=== PATIENT | female | born 1945 | race Caucasian/White ===

== ENCOUNTER → 2023-05-17 10:48 | Outpatient (CLI) | payer MEDICARE, SELFPAY ==
--- NOTE | ~2023-05-17 | MM_ITS ---
EXAMINATION: MM screening ange BI w tavo HISTORY: Screening mammogram TECHNIQUE: Craniocaudal and mediolateral oblique 3-D tomosynthesis images were obtained and synthetic 2-D images were generated. CAD analysis was submitted and interpreted. COMPARISON: No prior mammogram is available for comparison at this institution. BREAST PARENCHYMAL COMPOSITION: There are scattered areas of fibroglandular density. FINDINGS: No suspicious mass, calcification, or architectural distortion are identified in either sunil ast to suggest malignancy. IMPRESSION: 1. No mammographic evidence of malignancy. 2. Recommend routine screening mammography in one year. BI-RADS Category 1: Negative Reviewed, dictated and finalized at location A.
--- NOTE | ~2023-05-17 | DEXA_ITS ---
Bone Density Report Name: LOKI MONTES Age: 77 Sex: Female Ethnicity: White Date of : 1945 Indication: postmenopausal; screening for osteoporosis; asthma or emphysema; hysterectomy; Referring Provider: Duane, Jose Study: Bone densitometry was performed. Exam Date: May 17, 2023 Accession number: [id number] Bone Density: Region BMD T-score Z-score Classification AP Spine (L1-L4) 0.715 -3.0 -0.5 Osteoporosis Femoral Neck (Left) 0.575 -2.5 -0.3 Osteoporosis Total Hip (Left) 0.687 -2.1 -0.2 Osteopenia Femoral Neck (Right) 0.615 -2.1 0.0 Osteopenia Total Hip (Right) 0.670 -2.2 -0.4 Osteopenia Total Hip Mean 0.679 -2.2 -0.3 Osteopenia World Health Organization criteria for BMD impression classify patients as: Normal (T-score at or above -1.0), Osteopenia (T-score between -1.0 and -2.5), or Osteoporosis (T-score at or below -2.5). 10-year Fracture Risk: FRAX not reported because: Some T-score for Spine Total or Hip Total or Femoral Neck at or below -2.5 Clinical Information Provided by Patient: Smokes Has used the following medications: Vitamin D, MTV Has the following medical conditions: Asthma or Emphysema, Hysterectomy Patient maximum height was 63.5 Menopause Age: 29 No regular weight bearing exercise Drinks caffeinated beverages Onset of menses at age 17 Number of children 1 Impression: The patient has osteoporosis, based on the Total Spine T-score. The patient has risk factors, including: smoking. Discussion: INCREASED RISK OF FRACTURE. BONE DENSITY IS UNDESIRABLY LOW AT ONE OR MORE SKELETAL SITES, CONSISTENT WITH POSTMENOPAUSAL OSTEOPOROSIS. This patient's lowest T-score meets the World Health Organization's (WHO) criteria for osteoporosis at one or more sites (T-score -2.5 or below). In untreated patients, the risk of osteoporotic fracture increases approximately two-fold for each 1.0 SD decrease in T-score. Low bone density is not the only risk factor for fracture; also consider factors such as patient's age, frailty or poor health, risk of falling, risk of injury, previous osteoporotic fracture, family history of osteoporosis, cigarette smoking, low body weight, etc. Not everyone with low bone mineral density has osteoporosis; osteomalacia and other metabolic bone disorders should also be considered. Patients who have osteoporosis should be evaluated for specific diseases and conditions (secondary causes) that may cause or contribute to bone loss. The [place] [employer]ocrinologists (AACE) and National Osteoporosis Foundation (NOF) recommend pharmacologic intervention for all postmenopausal women whose T-score is in this range. The patient should follow a healthful lifestyle (good nutrition with adequate calcium and vitamin D, and appropriate weight-bearing exercise).
== END ==
PROVIDERS: PCP Internal Medicine; Visit Provider Internal Medicine
DX: Z12.31 Encounter for screening mammogram for malignant neoplasm of breast (principal); Z78.0 Asymptomatic menopausal state; M81.0 Age-related osteoporosis without current pathological fracture; M85.852 Other specified disorders of bone density and structure, left thigh; M85.851 Other specified disorders of bone density and structure, right thigh
CPT/HCPCS: 77063; 77067; 77080

== ENCOUNTER 2023-11-01 19:09 | Emergency (ER) | payer MEDICARE, SELFPAY ==
--- NOTE | ~2023-11-01 | XR_ITS ---
EXAMINATION: XR chest 2V DATE: 11/01/2023 20:08 INDICATION: Shortness of breath. TECHNIQUE: Frontal and lateral views of the chest were obtained. COMPARISON: None. FINDINGS: The lungs are hyperexpanded. A calcified right lung nodule and calcified right hilar lymph nodes are consistent with old granulomatous disease. There is mild atelectasis in left midlung zone i n the lower lung zones. No pleural effusion or pneumothorax. The heart size is normal. IMPRESSION: 1. Hyperexpanded lungs suspicious for chronic obstructive pulmonary disease. 2. Mild atelectasis bilaterally. Reviewed, dictated and finalized at location E. RTISING SALES REPRESENTATIVE
[2023-11-01 19:11] VITALS: BP 142/77; PULSE 82; RESP 22; TEMP 37.1; O2SAT 94
--- NOTE | 2023-11-01 19:15 | ECG_ITS ---
Measurements Intervals [place] Rate: 74 P: 71 [place]: 134 QRS: 32 QRSD: 81 T: 45 QT: 390 QTc: 434 Interpretive Statements SINUS RHYTHM WITH OCCASIONAL SUPRAVENTRICULAR PREMATURE COMPLEXES NONSPECIFIC ST SEGMENT ABNORMALITY ABNORMAL ECG NO PREVIOUS ECG AVAILABLE FOR COMPARISON Electronically Signed On 11-02-2023 17:28:26 ACCOUNT REPRESENTATIVE by Roger Ambrocio M.D.
[2023-11-01 20:20] LABS: Influenza A QL RT-PCR Positive (Negative); Influenza B QL RT-PCR Negative (Negative); RSV RNA, RT-PCR Negative (Negative); SARS-CoV-2 RNA PCR Negative (Negative)
--- NOTE | 2023-11-01 20:22 | ED.GENADULT ---
HPI - General Adult General Chief complaint: Upper Respiratory Infection Stated complaint: sob Time Seen by Provider: 11/01/23 20:10 Source: patient Mode of arrival: ambulatory Limitations: no limitations History of Present Illness HPI narrative: this is a 77-year-old female who presents to the ED with chief complaint of URI symptoms for the past 3 days. Patient reports that she has had a lot of coughing and shortness of breath, coughing is worse at night. she states she is currently being worked up for possible new diagnosis of COPD. Reports she was recently out of town traveling with family. reports a lot of today tightness in the central chest. Reports low-grade fevers of 99.1. Denies chest pain, abdominal pain, vomiting, diarrhea, neck pain, headache. Related Data Allergies Allergy/AdvReac Type Severity Reaction Status Date / Time Penicillins Allergy Hives Verified 11/01/23 20:25 Review of Systems Review of Systems: All systems as dictated in HPI Exam Narrative: GENERAL: Well-appearing, well-nourished, and in no acute distress. HEAD: Normocephalic, atraumatic. EYES: PERRLA and EOMI. ENT: Mild effusion bilaterally to the TMs. No erythema. Mild posterior oropharynx erythema. Nares clear, no rhinorrhea or epistaxis. Mucous membranes moist. Oropharynx without tonsillar hypertrophy exudate or other lesions. NECK: Supple. No adenopathy or masses. CHEST: No respiratory distress. Clear to auscultation. No wheezes rales or rhonchi . Able speak in full sentences. HEART: Regular rate and rhythm. No murmur heard. Normal peripheral pulses. ABDOMEN: Soft, nontender, nondistended, normal active bowel sounds. MSK: Normal range of motion. No edema. SKIN: Warm, dry, no rash. NEURO: Alert and oriented x4. No focal deficits. PSYCH: Normal mood and affect. Course Vital Signs Vital signs: Vital Signs Temperature 98.7 F 11/01/23 19:11 Pulse Rate 82 11/01/23 19:11 Respiratory Rate 22 H 11/01/23 19:11 Blood Pressure 142/77 H 11/01/23 19:11 Pulse Oximetry 94 11/01/23 19:11 Oxygen Delivery Room Air 11/01/23 19:11 Temperature 98.7 F 11/01/23 19:11 Pulse Rate 82 11/01/23 19:11 Respiratory Rate 22 H 11/01/23 19:11 Blood Pressure 142/77 H 11/01/23 19:11 Pulse Oximetry 94 11/01/23 19:11 Oxygen Delivery Room Air 11/01/23 20:25 Medical Decision Making MDM Narrative Medical decision making narrative: This is a 77-year-old female who presents to the ED with chief complaint of cough, chest tightness shortness of breath. Other urine symptoms such as body aches. Vitals are normal. Afebrile. Saturating 95% on room air. Exam only remarkable for posterior oropharynx erythema. Viral swabs are positive For influenza A. Chest x-ray: 1. Hyperexpanded lungs suspicious for chronic obstructive pulmonary disease. 2. Mild atelectasis bilaterally.. Overall symptoms are consistent with viral syndrome. She does not appear to be risk and should be able to be discharged home. Albuterol prescribed for chest tightness. Supportive measures discussed and strict return precautions were given. Patient is understanding and agreeable with plan for discharge follow-up with PCP. Vital Signs Vital Signs: Vital Signs Temperature 98.7 F 11/01/23 19:11 Pulse Rate 82 11/01/23 19:11 Respiratory Rate 22 H 11/01/23 19:11 Blood Pressure 142/77 H 11/01/23 19:11 Pulse Oximetry 94 11/01/23 19:11 Oxygen Delivery Room Air 11/01/23 19:11 Temperature 98.7 F 11/01/23 19:11 Pulse Rate 82 11/01/23 19:11 Respiratory Rate 22 H 11/01/23 19:11 Blood Pressure 142/77 H 11/01/23 19:11 Pulse Oximetry 94 11/01/23 19:11 Oxygen Delivery Room Air 11/01/23 20:25 Lab Data Labs: Lab Results 11/01/23 Range/Units 19:28 Influenza A (RT-PCR) Positive A (Negative) Influenza B (RT-PCR) Negative (Negative) RSV (RT-PCR) Negative (Negative) MARIANNE
== END 2023-11-01 21:03 | disposition home or self-care (01) ==
LOC: ANHED 20:55
PROVIDERS: Emergency Medicine; Emergency Provider Physician Assistant; PCP Internal Medicine
DX: J10.1 Influenza due to other identified influenza virus with other respiratory manifestations (principal); Z20.822 Contact with and (suspected) exposure to COVID-19; I49.1 Atrial premature depolarization
CPT/HCPCS: 71046; 87637; 93005; 99283

== ENCOUNTER 2025-08-18 15:23 | Emergency (ER) | payer MEDICARE, SELFPAY ==
[2025-08-18] VITALS (16 sets, daily range): BP systolic 126–153; BP diastolic 65–117; PULSE 57–73; RESP 13–27; TEMP 36.7; O2SAT 91–96
--- NOTE | ~2025-08-18 | CT_ITS ---
EXAMINATION: CTA neck, CTA chest DATE: 08/18/2025 20:45 INDICATION: Neck and chest swelling. Subclavian stenosis. TECHNIQUE: 1. Computed tomographic angiography (CTA) of the neck was performed with 100 mL of Omnipaque-350 intravenous contrast. Multiplanar reconstructions and maximum intensity projection 3D-reconstructions of the carotid arteries were created by the technologist on a separate workstation. Automated exposure control and iterative reconstruction technique were employed. The dose-length product was 471.33 (accession [id number]), 506.50 (accession [id number]) mGy-cm. 2. CT of the chest was performed with the identical 100 mL Omnipaque 350 intravenous contrast bolus. Additional 3D reconstructions utilizing coronal maximum intensity projection (MIP) were performed. Automated exposure control and iterative reconstruction technique were employed. The dose-length product was 506.50 mGy-cm. COMPARISON: None FINDINGS: Chest: Mild to moderate emphysema. Mild elevation the left hemidiaphragm. Bibasilar atelectasis. Additional linear discoid atelectasis/scarring in the lingula and right lower lobe. Calcified right lower lobe nodule along with a few small calcified hepatic and splenic calcifications consistent with old granulomatous disease. No pneumonia, pulmonary edema, pleural effusion or pneumothorax. Mild cardiomegaly. Atherosclerotic coronary artery calcification is. No pericardial effusion. No pathologically enlarged thoracic or upper abdominal lymphadenopathy. Cholecystectomy clips at the gallbladder fossa. 2.1 x 1.9 cm simple appearing cystic lesion at the head of the pancreas without evident solid soft tissue component. Thoracic aorta is normal in caliber. 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 There is atherosclerotic calcification along the aortic arch and great vessels arising from the arch. This most notable for a 75% stenosis at the proximal left subclavian artery. No hemodynamically significant stenosis of the aorta or remaining great vessels arising from the arch. 25 degree upper thoracic levoscoliosis with 15 degree compensatory dextroscoliosis in the mid to lower thoracic spine. Mild to moderate thoracic spondylosis. Neck: There is 20% stenosis of the right carotid bulb relative to normal distal artery lumen diameter (NASCET criteria). There is 45% stenosis of the left carotid bulb relative to normal distal artery lumen diameter. Bilateral vertebral arteries are codominant. There is non-hemodynamically significant atherosclerotic calcifications along the bilateral carotid siphons. There is no hemodynamically significant stenosis in the vertebral, basilar and internal carotid arteries. Both A1 and P1 segments are patent. The right P1 segment is diminutive with majority of flow to the right posterior cerebral artery supplied via a larger caliber patent right posterior cerebral artery. There is also a patent diminutive left posterior communicating artery. There is a 2 mm saccular aneurysm arising from the anterior to indicating artery. Cervical soft tissues are unremarkable. Changes of bilateral intraocular lens replacement. There is mucosal thickening the right maxillary sinus. Minimal cervical spondylosis with one-2 mm anterolisthesis C4 on C5. IMPRESSION: 1. 20% stenosis of the right carotid bulb relative to normal distal artery lumen diameter (NASCET criteria). 2. 45% stenosis of the left carotid bulb relative to normal distal artery lumen diameter. 3. 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 4. 2 mm saccular aneurysm arising from the anterior communicating artery. 5. Mild cardiomegaly. 6. 2.1 x 1.9 cm simple appearing cystic lesion at the head of the pancreas without evident solid soft tissue component. The differential diagnosis includes pseudocyst, intraductal papillary mucinous neoplasm (IPMN), mucinous cystic neoplasm (MCN), and the less common serous cystadenoma and neuroendocrine tumor. Correlate for history of pancreatitis and consider 6 month follow-up pre and postcontrast MRI. Reviewed, dictated and finalized at location A. IMPRESSION: 1. 20% stenosis of the right carotid bulb relative to normal distal artery lume n diameter (NASCET criteria). 2. 45% stenosis of the left carotid bulb relative to normal distal artery lumen diameter. 3. 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 4. 2 mm saccular aneurysm arising from the anterior communicating artery. 5. Mild cardiomegaly. 6. 2.1 x 1.9 cm simple appearing cystic lesion at the head of the pancreas with out evident solid soft tissue component. The differential diagnosis includes ps eudocyst, intraductal papillary mucinous neoplasm (IPMN), mucinous cystic neopl asm (MCN), and the less common serous cystadenoma and neuroendocrine tumor. Cor relate for history of pancreatitis and consider 6 month follow-up pre and postc ontrast MRI.
--- NOTE | ~2025-08-18 | CT_ITS ---
EXAMINATION: CT cervical spine wo con COMPARISON: None HISTORY: neck pain with left UE radiculopathy TECHNIQUE: Axial images were obtained through the spine without IV contrast. Coronal, sagittal reconstruction images were obtained from the axial views. CT scan performed using dose optimization techniques including the following automated exposure control; adjustment of mA and/or kV; use of iterative reconstruction technique. Automatic exposure control was used to reduce radiation dose. Permanent radiation dose record is archived to PACS. FINDINGS: Grade 1 anterolisthesis of C3 on C4 and C4 on C5 C5 on C6, no fracture is identified. Moderate loss of disc height C3 4 x 6 and C6-7 with moderate canal and foraminal stenosis, outpatient MRI is suggested. Soft tissues unremarkable. Impression: No acute abnormality. Reviewed, dictated and finalized at location P. Impression: No acute abnormality.
--- OUTSIDE RECORDS SUMMARY | 2025-08-18 14:30 | XMS_ITS | Encounter Summary ---
Author Organization [facility] Healthcare Address [address] [place] [address] Care Team Providers Care Chief Environmental Commitment Officer Name Role Phone Unknown, Notinfile Primary Care Provider Unavail able Reason for Visit * Reason Comments Neck Pain Neck and shoulder pa in started yesterday, starting to go down into back on left side, sharps pain come and go causes her to get SOB Encounter Details Date Type Department Care Team (Late st Contact Info) Description 08/18/2025 2:30 PM CDT Office Visit [facility] at [address] [phone] Veronica Ga, PRECISION PRINTING WORKER [address] [place] [address] [address] [place], [place] [phone] Neck swelling (Primary Dx); Shortness of breath Social History Tobacco Use Types Packs/Day Years Used Date Smoking Tobacco: Never Assessed Comments Unknown Sex and Gender Information Value Date Recorded Sex Assigned at Not on file Legal Sex Female 8:22 PM TOUR ESCORT Gender Identity Not on file Sexual Orientation Not on file documented as of this encounter Last Filed Vital Signs Vital Sign Reading Time Taken Comments Blood Pressure 126/86 08/18/2025 2:27 PM CDT Pulse 59 08/18/2025 2:27 PM CDT Temperature 36.8 C (98.3 F) 08/18/2025 2:27 PM CDT Respiratory Rate 20 08/18/2025 2:27 PM CDT Oxygen Saturation 96% 08/18/2025 2:27 PM CDT Inhaled Oxygen Concentration - - Weight 66.2 kg (146 lb) 08/18/2025 2:27 PM CDT Height - - Body Mass Index - - documented in this encounter Plan of Treatment Not on file documented as of this encounter Visit Diagnoses Diagnosis Neck swelling- Primary Swelling, mass, or lump in head and neck Shortness of breath documented in this encounter Historical Medications * This list may reflect changes made after this encounter. Anoro Ellipta 62.5-25 mcg/actuation blister with device INHALE 1 PUFF INTO THE LUNGS DAILY. RINSE AND SPIT AFTER USE 07/24/2025 budesonide EC (ENTOCORT EC) 3 mg 24 hr capsule Take 1 capsule (3 mg total) by mouth gold plater before breakfast atorvastatin (LIPITOR) 40 mg tablet Take 1 tablet (40 mg total) by mouth daily 06/12/2025 meclizine (ANTIVERT) 25 mg tablet Take 0.5 tablets (12.5 mg total) by mouth 3 (three) times a day as needed 06/19/2025 propranolol LA (INDERAL LA) 60 mg 24 hr capsule Take 1 capsule (60 mg total) by mouth daily 06/03/2025 amLODIPine (NORVASC) 5 mg tablet Take 1 tablet (5 mg total) by mouth daily 10/01/2024 lisinopriL (PRINIVIL,ZESTRI L) 10 mg tablet Take 1 tablet (10 mg total) by mouth daily 04/09/2025 added in this encounter Care Teams Chief Environmental Commitment Officer Relationship Specialty Start Date End Date Unknown, Notinfile PCP - General 08/18/25 documented as of this encounter
--- OUTSIDE RECORDS SUMMARY | 2025-08-18 14:30 | XMS_ITS | Encounter Summary ---
Author Organization [facility] Healthcare Address [address] [place] [address] Care Team Providers Care Freight Conductor Name Role Phone Unknown, Notinfile Primary Care Provider Unavail able Reason for Visit * Reason Comments Neck Pain Neck and shoulder pa in started yesterday, starting to go down into back on left side, sharps pain come and go causes her to get SOB Encounter Details Date Type Department Care Team (Late st Contact Info) Description 08/18/2025 2:30 PM CDT Office Visit [facility] at [address] [phone] Veronica Ga, LIQUIFIED NATURAL GAS SPECIALIST [address] [place] [address] [address] [place], [place] [phone] Neck swelling (Primary Dx); Shortness of breath Social History Tobacco Use Types Packs/Day Years Used Date Smoking Tobacco: Never Assessed Comments Unknown Sex and Gender Information Value Date Recorded Sex Assigned at Not on file Legal Sex Female 8:22 PM COTTON FACTOR Gender Identity Not on file Sexual Orientation [...] 1 capsule (3 mg total) by mouth early childhood teacher before breakfast atorvastatin (LIPITOR) 40 mg tablet [...] 04/09/2025 added in this encounter Care Teams Freight Conductor Relationship Specialty Start Date End Date Unknown, Notinfile PCP - General 08/18/25 documented as of this encounter
--- NOTE | 2025-08-18 15:33 | ED_ITS ---
HPI - General Adult General Chief complaint: Unspecified <Doug Jim APRN - Last Filed: 08/18/25 15:37> Stated complaint: potential vascular blockage <Doug Jim APRN - Last Filed: 08/18/25 15:37> Time Seen by Provider: 08/18/25 19:21 <Doug Jim APRN - Last Filed: 08/18/25 15:37> Focused HPI: 79-year-old female presents to the ER via EMS for evaluation of neck pain. States that she been experiencing neck pain radiates into her left arm since yesterday. Pain is worse with movement. 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 Under the care of vascular surgery through [facility]. Denies numbness and tingling in the left arm. Denies upper extremity weakness. Denies temperature changes in left upper extremity. GENERAL: Well-appearing, well-nourished, and in no acute distress. HEAD: Normocephalic, atraumatic. CHEST: Clear to auscultation. No respiratory distress. HEART: Regular rate and rhythm. NEURO: Alert and oriented x3. Patient screened in triage and initial orders placed. Additional care and disposition to be based upon diagnostic testing and treatment. <Doug Jim APRN - Last Filed: 08/18/25 15:37> History of Present Illness HPI narrative: Patient 79-year-old female who presents emergency department chief complaint of left-sided neck pain. Patient reports the pain radiates down her left arm reports he has history of subclavian artery stenosis and is followed by vascular surgery and [facility] the patient states no numbness no weakness in the arm the patient reports that she feels as though her neck may be swollen on the left side <Adama Kaminski MD - Last Filed: 08/18/25 22:35> Related Data Allergies/adverse reactions: Allergies Allergy/AdvReac Type Severity Reaction Status Date / Time Penicillins Allergy Hives Verified 11/01/23 20:25 <Doug Jim APRN - Last Filed: 08/18/25 15:37> Review of Systems 2 Review of Systems: A 10 system review of systems was completed on the patient and is negative except for what is stated in the HPI. Nursing and ancillary documentation was reviewed. <Adama Kaminski MD - Last Filed: 08/18/25 22:35> Exam 2 Narrative: GENERAL: Well-appearing, well-nourished, and in no acute distress. HEAD: Normocephalic, atraumatic. EYES: PERRLA and EOMI. ENT: Nares clear, no rhinorrhea or epistaxis. Mucous membranes moist. NECK: Supple. CHEST: Clear to auscultation. No respiratory distress. HEART: Regular rate and rhythm. No murmur heard. Normal peripheral pulses. ABDOMEN: Soft, nontender, nondistended, normal active bowel sounds. EXTREMITIES: Normal range of motion. No edema. SKIN: Warm, dry, no rash. NEURO: No focal deficits. Alert and oriented x3. PSYCH: Normal mood and affect. <Adama aKminski MD - Last Filed: 08/18/25 22:35> Course Vital Signs Vital signs: Vital Signs Temperature 36.7 C 08/18/25 15:26 Pulse Rate 71 08/18/25 15:26 Respiratory Rate 18 08/18/25 15:26 Blood Pressure 138/117 H 08/18/25 15:26 Pulse Oximetry 96 08/18/25 15:26 Oxygen Delivery Room Air 08/18/25 15:26 Temperature 36.7 C 08/18/25 15:26 Pulse Rate 60 08/18/25 21:46 Respiratory Rate 19 08/18/25 21:46 Blood Pressure 131/65 08/18/25 21:46 Pulse Oximetry 5 L 08/18/25 21:46 Oxygen Delivery Room Air 08/18/25 15:26 <Doug Jim, [employer] - Last Filed: 08/18/25 15:37> Vital Signs Temperature 36.7 C 08/18/25 15:26 Pulse Rate 71 08/18/25 15:26 Respiratory Rate 18 08/18/25 15:26 Blood Pressure 138/117 H 08/18/25 15:26 Pulse Oximetry 96 08/18/25 15:26 Oxygen Delivery Room Air 08/18/25 15:26 Temperature 36.7 C 08/18/25 15:26 Pulse Rate 60 08/18/25 21:46 Respiratory Rate 19 08/18/25 21:46 Blood Pressure 131/65 08/18/25 21:46 Pulse Oximetry 5 L 08/18/25 21:46 Oxygen Delivery Room Air 08/18/25 15:26 <Adama Kaminski MD - Last Filed: 08/18/25 22:35> Medical Decision Making MDM Narrative Medical decision making narrative: Differential diagnosis includes arterial lesion, abscess, Laboratory studies were obtained on the patient showed normal CBC normal CMP CT scan of the neck and chest showed FINDINGS: Chest: Mild to moderate emphysema. Mild elevation the left hemidiaphragm. Bibasilar atelectasis. Additional linear discoid atelectasis/scarring in the lingula and right lower lobe. Calcified right lower lobe nodule along with a few small calcified hepatic and splenic calcifications consistent with old granulomatous disease. No pneumonia, pulmonary edema, pleural effusion or pneumothorax. Mild cardiomegaly. Atherosclerotic coronary artery calcification is. No pericardial effusion. No pathologically enlarged thoracic or upper abdominal lymphadenopathy. Cholecystectomy clips at the gallbladder fossa. 2.1 x 1.9 cm simple appearing cystic lesion at the head of the pancreas without evident solid soft tissue component. Thoracic aorta is normal in caliber. 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 There is atherosclerotic calcification along the aortic arch and great vessels arising from the arch. This most notable for a 75% stenosis at the proximal left subclavian artery. No hemodynamically significant stenosis of the aorta or remaining great vessels arising from the arch. 25 degree upper thoracic levoscoliosis with 15 degree compensatory dextroscoliosis in the mid to lower thoracic spine. Mild to moderate thoracic spondylosis. Neck: There is 20% stenosis of the right carotid bulb relative to normal distal artery lumen diameter (NASCET criteria). There is 45% stenosis of the left carotid bulb relative to normal distal artery lumen diameter. Bilateral vertebral arteries are codominant. There is non-hemodynamically significant atherosclerotic calcifications along the bilateral carotid siphons. There is no hemodynamically significant stenosis in the vertebral, basilar and internal carotid arteries. Both A1 and P1 segments are patent. The right P1 segment is diminutive with majority of flow to the right posterior cerebral artery supplied via a larger caliber patent right posterior cerebral artery. There is also a patent diminutive left posterior communicating artery. There is a 2 mm saccular aneurysm arising from the anterior to indicating artery. Cervical soft tissues are unremarkable. Changes of bilateral intraocular lens replacement. There is mucosal thickening the right maxillary sinus. Minimal cervical spondylosis with one-2 mm anterolisthesis C4 on C5. IMPRESSION: 1. 20% stenosis of the right carotid bulb relative to normal distal artery lumen diameter (NASCET criteria). 2. 45% stenosis of the left carotid bulb relative to normal distal artery lumen diameter. 3. 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 4. 2 mm saccular aneurysm arising from the anterior communicating artery. 5. Mild cardiomegaly. 6. 2.1 x 1.9 cm simple appearing cystic lesion at the head of the pancreas without evident solid soft tissue component. The differential diagnosis includes pseudocyst, intraductal papillary mucinous neoplasm (IPMN), mucinous cystic neoplasm (MCN), and the less common serous cystadenoma and neuroendocrine tumor. Correlate for history of pancreatitis and consider 6 month follow-up pre and postcontrast MRI. The patient is followed at [facility] vascular given his no acute findings the patient will be discharged home to follow-up with her vascular surgeon <Adama Kaminski MD - Last Filed: 08/18/25 22:35> Vital Signs Vital Signs: Vital Signs Temperature 36.7 C 08/18/25 15:26 Pulse Rate 71 08/18/25 15:26 Respiratory Rate 18 08/18/25 15:26 Blood Pressure 138/117 H 08/18/25 15:26 Pulse Oximetry 96 08/18/25 15:26 Oxygen Delivery Room Air 08/18/25 15:26 Temperature 36.7 C 08/18/25 15:26 Pulse Rate 60 08/18/25 21:46 Respiratory Rate 19 08/18/25 21:46 Blood Pressure 131/65 08/18/25 21:46 Pulse Oximetry 5 L 08/18/25 21:46 Oxygen Delivery Room Air 08/18/25 15:26 <Doug Jim APRN - Last Filed: 08/18/25 15:37> Vital Signs Temperature 36.7 C 08/18/25 15:26 Pulse Rate 71 08/18/25 15:26 Respiratory Rate 18 08/18/25 15:26 Blood Pressure 138/117 H 08/18/25 15:26 Pulse Oximetry 96 08/18/25 15:26 Oxygen Delivery Room Air 08/18/25 15:26 Temperature 36.7 C 08/18/25 15:26 Pulse Rate 60 08/18/25 21:46 Respiratory Rate 19 08/18/25 21:46 Blood Pressure 131/65 08/18/25 21:46 Pulse Oximetry 5 L 08/18/25 21:46 Oxygen Delivery Room Air 08/18/25 15:26 <Adama Kaminski MD - Last Filed: 08/18/25 22:35> Lab Data Result diagrams: 08/18/25 19:55 08/18/25 19:55 <Doug Jim APRN - Last Filed: 08/18/25 15:37> Labs: Lab Results 08/18/25 Range/Units 19:55 WBC 7.7 (4.5-10.0) K/mm3 RBC 3.70 L (4.2-5.4) M/mm3 Hgb 12.0 (12.0-15.0) g/dL Hct 37.3 (37.0-47.0) % MCV 100.8 H (80-100) fl MCH 32.4 (26-34) pg MCHC 32.2 (32-36) g/dl RDW 13.5 (11.5-14.5) % Plt Count 248 (150-375) k/mm3 MPV 9.3 (7.4-10.4) fl Immature Gran % (Auto) 0.3 (0-0.5) % Neut % (Auto) 65.2 (45.5-73.1) % Lymph % (Auto) 23.9 (18.3-44.2) % [place] % (Auto) 7.8 (2.6-8.5) % Eos % (Auto) 2.3 (0-4.4) % Baso % (Auto) 0.5 (0.2-1.2) % Lymph # (Auto) 1.85 (0.9-3.2) K/mm3 [place] # (Auto) 0.6 (0.1-0.6) K/mm3 Eos # (Auto) 0.2 (0-0.3) K/mm3 Baso # (Auto) 0.0 (0.0-0.1) K/mm3 Abs Immat Gran (auto) 0.02 (0.00-0.031) K/mm3 Absolute Neuts (auto) 5.0 (1.3-6.7) K/mm3 Absolute Nucleated RBC 0.000 (0.0-0.012) K/mm3 Nucleated RBC % 0.0 (0.0-0.2) % PT 12.1 (11.1-14.7) Seconds INR 0.9 APTT 27.3 (22.3-36.8) Seconds Sodium 138 (137-145) mmol/L Potassium 3.7 (3.4-5.0) mmol/L Chloride 106 (98-107) mmol/L Carbon Dioxide 24 (22-30) mmol/L Anion Gap 8 (4-12) mmol/L BUN 17 (7-17) mg/dL Creatinine 0.93 (0.7-1.0) mg/dL Estim Creat Clear Calc 36 ml/min Estimated GFR 58 L (59 - ) Glucose 130 H (65-110) mg/dL Lactic Acid 0.8 (0.7-2.0) mmol/L Calcium 9.1 (8.4-10.2) mg/dL Total Bilirubin 0.4 (0.2-1.3) mg/dL AST 27 (14-36) U/L ALT 21 (6-35) U/L Alkaline Phosphatase 53 (38-126) U/L Total Protein 7.5 (6.3-8.2) g/dL Albumin 4.4 (3.5-5.1) g/dL <Doug Jim, [employer] - Last Filed: 08/18/25 15:37> Lab Results 08/18/25 Range/Units 19:55 WBC 7.7 (4.5-10.0) K/mm3 RBC 3.70 L (4.2-5.4) M/mm3 Hgb 12.0 (12.0-15.0) g/dL Hct 37.3 (37.0-47.0) % MCV 100.8 H (80-100) fl MCH 32.4 (26-34) pg MCHC 32.2 (32-36) g/dl RDW 13.5 (11.5-14.5) % Plt Count 248 (150-375) k/mm3 MPV 9.3 (7.4-10.4) fl Immature Gran % (Auto) 0.3 (0-0.5) % Neut % (Auto) 65.2 (45.5-73.1) % Lymph % (Auto) 23.9 (18.3-44.2) % [place] % (Auto) 7.8 (2.6-8.5) % Eos % (Auto) 2.3 (0-4.4) % Baso % (Auto) 0.5 (0.2-1.2) % Lymph # (Auto) 1.85 (0.9-3.2) K/mm3 [place] # (Auto) 0.6 (0.1-0.6) K/mm3 Eos # (Auto) 0.2 (0-0.3) K/mm3 Baso # (Auto) 0.0 (0.0-0.1) K/mm3 Abs Immat Gran (auto) 0.02 (0.00-0.031) K/mm3 Absolute Neuts (auto) 5.0 (1.3-6.7) K/mm3 Absolute Nucleated RBC 0.000 (0.0-0.012) K/mm3 Nucleated RBC % 0.0 (0.0-0.2) % PT 12.1 (11.1-14.7) Seconds INR 0.9 APTT 27.3 (22.3-36.8) Seconds Sodium 138 (137-145) mmol/L Potassium 3.7 (3.4-5.0) mmol/L Chloride 106 (98-107) mmol/L Carbon Dioxide 24 (22-30) mmol/L Anion Gap 8 (4-12) mmol/L BUN 17 (7-17) mg/dL Creatinine 0.93 (0.7-1.0) mg/dL Estim Creat Clear Calc 36 ml/min Estimated GFR 58 L (59 - ) Glucose 130 H (65-110) mg/dL Lactic Acid 0.8 (0.7-2.0) mmol/L Calcium 9.1 (8.4-10.2) mg/dL Total Bilirubin 0.4 (0.2-1.3) mg/dL AST 27 (14-36) U/L ALT 21 (6-35) U/L Alkaline Phosphatase 53 (38-126) U/L Total Protein 7.5 (6.3-8.2) g/dL Albumin 4.4 (3.5-5.1) g/dL <Adama Kaminski MD - Last Filed: 08/18/25 22:35> Discharge Plan Discharge Clinical Impression: Neck pain <Doug Jim APRN - Last Filed: 08/18/25 15:37> Patient Disposition: Home <Doug Jim APRN - Last Filed: 08/18/25 15:37> Condition: Stable <Doug Jim APRN - Last Filed: 08/18/25 15:37> Instructions: Antibiotic Form, Acute Neck Pain (ED) <Doug Jim APRN - Last Filed: 08/18/25 15:37> Additional Instructions: Please follow-up with your vascular surgeon if her symptoms worsen please return to the emergency department for re-evaluation <Doug Jim APRN - Last Filed: 08/18/25 15:37> Patient Language: Macedonian <Doug Jim APRN - Last Filed: 08/18/25 15:37> Prescriptions: No Action albuterol sulfate 90 mcg/actuation HFA aerosol inhaler 2 puff inhalation QID PRN (Reason: shortness of breath or wheezing) Qty: 6.7 0RF <Doug Jim APRN - Last Filed: 08/18/25 15:37> Follow-up/Referrals: PHYSICIAN NOT ON STAFF,NONSTAFF [Non-Staff] <Doug Jim APRN - Last Filed: 08/18/25 15:37> Time of Disposition: 22:35 <Doug Jim APRN - Last Filed: 08/18/25 15:37> 22:35 <Adama Kaminski MD - Last Filed: 08/18/25 22:35>
--- OUTSIDE RECORDS SUMMARY | 2025-08-18 15:55 | XMS_ITS | Clinical Summary ---
Author Organization [facility] Address [address] [place] [address] Care Team Providers Care Financial Dealers Name Role Phone Ovidio Valverde MD Unavailable [phone] Tadeo Frost MD Unavailable Denzel Harris DO Primary Care Provider + Allergies Active Allergy Reactions Criticality Noted Date Comments Aspirin GI Bleed 08/04/2023 Varenicline Other (see comment) 10/04/2021 Behavioral change Fluocinolone Shortness of Breath,Rash,Swelling High 09/06/2021 Ciprofloxacin Rash Low 09/06/2021 Rosuvastatin Myalgias 09/06/2021 Pain Doxycycline Shortness of Breath,Rash,Swelling High 09/06/2021 Alendronate Rash Low 09/06/2021 Glycopyrrolate Tachycardia Low 09/06/2021 hypertension Nicotine Rash Low 10/04/2021 Nicotine patch Penicillins Hives Low 09/06/2021 Bupropion Other (see comment) 09/06/2021 Ringing in ears Ezetimibe Myalgias Low 09/06/2021 Simvastatin Myalgias Low 09/06/2021 Medications Acetaminophen (TYLENOL ARTHRITIS PAIN OR) Active budesonide EC (ENTOCORT EC) 3 MG capsule Take 1 capsule (3 mg total) by mouth every morning. 2-3mg daily per GI Active amLODIPine (NORVASC) 5 MG tabletIndications :Primary hypertension Take 1 tablet (5 mg total) by mouth daily. 90 tablet 3 10/01/20 24 Active lisinopril (PRINIVIL) 10 MG tabletIndications :Primary hypertension Take 1 tablet (10 mg total) by mouth daily. 90 tablet 04/09/20 25 Active propranolol LA (INDERAL LA) 60 MG 24 hr capsuleIndication s:Primary hypertension,Esse ntial tremor TAKE 1 CAPSULE(60 MG) BY MOUTH DAILY 90 capsule 1 06/03/20 25 Active atorvastatin (LIPITOR) 40 MG tabletIndications :Coronary artery disease involving [place] heart with angina pectoris, unspecified vessel or lesion type,Mixed hyperlipidemia TAKE 1 TABLET(40 MG) BY MOUTH EVERY NIGHT AT BEDTIME 90 tablet 1 06/12/20 25 Active meclizine (ANTIVERT) 25 MG tabletIndications :Vertigo Take 0.5 tablets (12.5 mg total) by mouth 3 (three) times daily as needed for Dizziness or Nausea. 90 tablet 06/19/20 25 Active umeclidinium-aleena nterol (ANORO ELLIPTA) 62.5-25 MCG/ACT inhalerIndication s:Chronic obstructive pulmonary disease, unspecified COPD type (CMS/HCC HHS/HCC) INHALE 1 PUFF INTO THE LUNGS DAILY. RINSE AND SPIT AFTER USE 60 each 3 07/24/20 25 Active Multiple Vitamin (MULTIVITAMIN ADULT OR) Take 1 tablet by mouth daily. Active umeclidinium-aleena nterol (ANORO ELLIPTA) 62.5-25 MCG/ACT inhalerIndication s:Chronic obstructive pulmonary disease, unspecified COPD type (CMS/HCC HHS/HCC) Inhale 1 puff into the lungs daily. Rinse and spit after use 90 each 3 03/26/20 25 025 Discontinued Active Problems Problem Noted Date Diagnosed Date Lymphocytic colitis 09/04/2024 Osteoporosis 05/22/2023 Chest pain 03/30/2023 Coronary artery disease invo lving [place] heart with angina pectoris, unspecified vessel or lesion type 02/08/2022 Overview (03/09/2022): Stable. Continue with aspirin 81 mg daily and atorvastatin 80 mg daily. Close follow-up with cardiology. Peripheral vascular disease 10/14/2021 Overview (03/09/2022): Stable - atorvastatin 40 MG tablet; Take 2 tablets (80 mg total) by mouth nightly at bedtime. Patient prefers the smaller 40 mg tablets due to the size. Dispense: 180 tablet; Refill: 2 - continue with asprin 81 mg daily Prediabetes 09/07/2021 Macrocytic anemia with vitamin B12 deficiency Primary hypertension 09/06/2021 Mixed hyperlipidemia 09/06/2021 Gastroesophageal reflux disease without esophagi tis 09/06/2021 Vertigo 09/06/2021 Stenosis of right carotid artery 09/06/2021 Primary osteoarthritis of both knees 09/06/2021 Postmenopausal 09/06/2021 Tobacco dependence 09/06/2021 Allergies 09/06/2021 Resolved Problems Problem Noted Date Diagnosed Date Resolved Date Hypertensive heart disease w ith heart failure ([facility]) 04/22/2024 09/04/2024 Paroxysmal atrial fibrillati on ([facility]) 01/28/2023 05/12/2025 Encounters Date Type Department Care Team Description 08/13/2025 2:15 PM CDT Office Visit [facility], [address] [address] Tadeo Frost MD Follow Up 08/13/2025 Travel 07/31/2025 10:30 AM CDT Office Visit [facility], [address] [address] Roberto Mariscal MD Consult 07/31/2025 Travel 07/23/2025 Results Follow-Up [facility] [place] [address] [place] [address] Denzel Hanson MD CTA CHEST 07/23/2025 MyChart Message Enc [facility] [place] [address] [place] [address] Denzel Hanson MD CTA scan done on July 15, 2025 07/15/2025 3:18 PM CDT - 07/15/2025 11:59 PM CDT Hospital Encounter [facility] [place] [address] Denzel Hanson MD Discharge Disposition: Home or Self Care (Routine Discharge) 07/15/2025 Travel 07/03/2025 Scan HEALTH INFO SRVCS Scanned, Doc [facility] CT (SCAN) 06/25/2025 [facility] [address] [facility] [place] [address] CHEST HIGH RESOLUTION WO CON 06/24/2025 MyChart Message Enc [facility] [place] [address] [place] [address] Denzel Hanson MD C/T scan 06/18/2025 12:34 PM CDT - 06/18/2025 11:59 PM CDT Hospital Encounter [facility] [address] [place] [address] Denzel Hanson MD Discharge Disposition: Home or Self Care (Routine Discharge) 06/18/2025 Travel 06/02/2025 Telephone [facility] [address] [facility] [place] [address] Denzel Hanson MD Results 06/02/2025 Results Follow-Up [facility] [place] [address] [place] [address] Denzel Hanson MD Complete PFT (pre/post Josue, Lung Vol, Diff Capacity) (04089, [id number], [id number], [id number]) 05/29/2025 MyChart Message Enc [facility] [address] Ara Dickerson, ANP-BC Test Results 05/28/2025 Results Follow-Up [facility] [address] [place] [address] Maggie Frias RN USE ECHOCARDIOGRAM 05/26/2025 12:30 PM CDT - 05/26/2025 11:59 PM CDT Hospital Encounter [facility] [place] [address] Ovidio Valverde MD Discharge Disposition: Home or Self Care (Routine Discharge) 05/26/2025 Travel 05/23/2025 9:49 AM CDT - 05/23/2025 11:59 PM CDT Hospital Encounter [facility] [place] [address] Denzel Hanson MD Discharge Disposition: Home or Self Care (Routine Discharge) 05/23/2025 Scan [email or web address] INFO SRVCS Scanned, [facility] PFT (SCAN) 05/23/2025 Travel from Last 3 Months Immunizations Immunization Administration Dates Next Due Arexvy Respiratory Syncytial Virus (RSV, adjuvanted) 0.5 mL, PF 11/08/2024 Fluad influenza vaccine, Romaine drivalent (aIIV4), Inactivated, adjuvanted, preservative free, 0.5 mL,IM use 08/19/2021 Fluzone High Dose (IIV, trivalent, 0.5mL) 2023 Fluzone High Dose - >Age 65 (Prefilled Syringe) 09/07/2022 Influenza Adult (Generic) 09/20/2023,1945 MODERNA COVID-19 (12+) MRNA, LNP-S, PF, 100 MCG/ 0.5 ML DOSE 02/05/2021,01/08/2021 MODERNA COVID-19 ([employer] GOPAL MONCHO), MRNA, LNP-S, PF, 50 MCG/ 0.25 ML DOSE 03/15/2022,10/11/2021 Pneumococcal (Pneumovax 23) 06/27/2020 Pneumococcal (Prevnar 13) 09/20/2017 Zoster (Zostavax) 81088 Unt/0.65Ml 01/19/2008 Family History Medical History Relation Comments Brain Tumor Brother 1 Cancer Brother 1 Lung Cancer Throat cancer Brother 2 Melanoma Father Diabetes Mother Diabetes Sister Relation Status Comments Brother 1 Alive Brother 2 Daughter Alive Father Mother Sister Alive Social History Tobacco Use Types Packs/Day Years Used Date Smoking Tobacco: Some Days Cigarettes Last attempted to quit: 03/05/1968 Smokeless Tobacco: Never Tobacco Cessation:Ready to Q uit: Yes; Counseling Given: Yes Comments:Provider to [place] Alcohol Use Standard Drinks/Week Comments Not Currently 0 (1 standard drink = 0.6 oz pur e alcohol) rarely Humiliation, Afraid, Rape, and Kick questionnair e Answer Date Recorded Within the last year, have y ou been afraid of your partner or ex-partner? No 03/30/2023 Within the last year, have y ou been humiliated or emotionally abused in other ways by your partner or ex-partner? No Within the last year, have y ou been kicked, hit, slapped, or otherwise physically hurt by your partner or ex-partner? No 03/30/2023 Within the last year, have y ou been raped or forced to have any kind of sexual activity by your partner or ex-partner? No 03/30/2023 Social Connection and Isolat ion Panel [NHANES] Answer Date Recorded In a typical week, how many times do you talk on the phone with family, friends, or neighbors? More than three times a week 03/30/2023 How often do you get togethe r with friends or relatives? More than three times a week 03/30/2023 How often do you attend chur ch or episcopal services? More than 4 times per year 03/30/2023 Do you belong to any clubs o r organizations such as presybeterian groups, unions, fraternal or athletic groups, or school groups? Yes 03/30/2023 How often do you attend meet ings of the clubs or organizations you belong to? More than 4 times per year 03/30/2023 Are you , , di vorced, , never , or living with a partner? 03/30/2023 AUDIT-C Answer Date Recorded Q1: How often do you have a drink containing alc ohol? Monthly or less 03/30/2023 Q2: How many drinks containi ng alcohol do you have on a typical day when you are drinking? 1 or 2 03/30/2023 Q3: How often do you have si x or more drinks on one occasion? Never 03/30/2023 Overall Financial Resource Strain (CARDIA) Answe r Date Recorded How hard is it for you to pa y for the very basics like food, housing, medical care, and heating? Not hard at all 03/30/2023 PHQ-2 Answer Date Recorded Patient Health Questionnaire-2 Score 0 03/05/2025 [facility] - Occupational Stress Questionnaire Answer Date Recorded Do you feel stress - tense, restless, nervous, or anxious, or unable to sleep at night because your mind is troubled all the time - these days? Not at all 03/30/2023 Exercise Vital Sign Answer Date Recorde d On average, how many days pe r week do you engage in moderate to strenuous exercise (like a brisk walk)? 3 days 03/30/2023 On average, how many minutes do you engage in exercise at this level? 10 min 03/30/2023 Hunger Vital Sign Answer Date Recorded Within the past 12 months, y ou worried that your food would run out before you got the money to buy more. Never true 03/30/20 23 Within the past 12 months, t he food you bought just didn't last and you didn't have money to get more. Never true 03/30/2023 PRAPARE - Transportation Answer Date Re corded In the past 12 months, has l ack of transportation kept you from medical appointments or from getting medications? No 03/13 In the past 12 months, has l ack of transportation kept you from meetings, work, or from getting things needed for daily living? No 03/30/2023 Housing Stability Vital Sign Answer Dereck e Recorded In the last 12 months, was t here a time when you were not able to pay the mortgage or rent on time? No 03/30/2023 In the last 12 months, how many places have you lived? 1 03/30/2023 In the last 12 months, was t here a time when you did not have a steady place to sleep or slept in a usp (including now)? No 03/30/2023 Comments No Sex and Gender Information Value Date Recorded Sex Assigned at Female 11/28/2024 2:57 PM ENGINE MANAGER Legal Sex Female 2:49 PM CDT Gender Identity Female 03/05/2025 2:26 PM CDT Sexual Orientation Not on file Last Filed Vital Signs Vital Sign Reading Time Taken Comments Blood Pressure 140/70 08/13/2025 2:15 PM CDT Pulse 77 08/13/2025 2:15 PM CDT Temperature 36.6 C (97.8 F) 07/31/2025 10:25 AM CDT Respiratory Rate 18 07/31/2025 10:25 AM CDT Oxygen Saturation 93% 07/31/2025 10:25 AM CDT Inhaled Oxygen Concentration - - Weight 66.5 kg (146 lb 9.6 oz) 08/13/2025 2:15 P M CDT Height 160 cm (5' 3) 08/13/2025 2:15 PM CDT Body Mass Index 25.97 08/13/2025 2:15 PM CDT Plan of Treatment Upcoming Encounters Date Type Department Care Team (Late st Contact Info) Description 10/22/2025 1:00 PM ENGINE MANAGER Office Visit [facility] - [address] [facility] [address] [place] [address] Denzel Hanson MD [address] [facility] [address] [place] [address] 10/27/2025 12:15 PM ENGINE MANAGER Office Visit [facility] [address] [facility] [address] [place] [address] Ovidio Valverde MD [address] [facility] [address] [place] [address] 11/17/2025 1:40 PM ENGINE MANAGER Office Visit [facility] Family & Internal Medicine - [address] [address] Denzel Harris, DO [address] [place] [address] 11/24/2025 11:00 AM ENGINE MANAGER Appointment [facility] [place] [address] Tadeo Frost MD Three [facility]. [facility] [address] [place] [address] 01/13/2026 11:00 AM ENGINE MANAGER Appointment [facility] [address] Tadeo Frost MD Three [facility]. [facility] [address] [place] [address] 07/31/2026 1:30 PM CDT [place] [address] Roberto Mariscal MD [address] [facility] [address] [place] [address] 08/13/2026 11:45 AM CDT Office Visit [facility] [address] [place] [address] Roberto Mariscal MD [address] [facility] [address] [place] [address] Health Maintenance Due Date Last Done Comments Dexa Scan (General) 05/17/2025 05/17/2023, 05/17/2023, 05/17/2023, Additional history exists COVID-19 Vaccine ( season) 2025 03/15/2022, 10/11/2021, 02/05/2021, Additional history exists Influenza Adult (#1) 2025 10/08/2024, 09/20/2023, 09/07/2022, Additional history exists Zoster Vaccines (2 of 3) 09/04/2025 01/19/2008 Pos tponed from 03/15/2008 (Going to Outside Clinic) DTaP, Tdap and Td Vaccines (1 - Tdap) 03/05/2026 Postponed from 1965 (No Insurance Coverage) Annual Medicare Wellness Visit 05/13/2044 09/29/2021 Postponed from 09/30/2022 (Patient Refused) Pneumococcal Vaccine: 50+ Years Completed 06/27/2020, 09/20/2017 Hepatitis C Completed 09/06/2021 Colorectal Cancer Screening Colonoscopy (10 Years) Discontinued 08/07/2024, 12/31/2019 RSV Immunization or 60+ Years Completed 11/08/2024 PHQ-2 (Physician [place]) Completed 03/05/2025 Meningococcal B Vaccine Aged Out No l onger eligible based on patient's age to complete this topic Meningococcal Vaccine Aged Out No ashley macario eligible based on patient's age to complete this topic RSV Immunizations Under 20 Months Aged Out No longer eligible based on patient's age to complete this topic Procedures Procedure Name Priority Date/Time Associated Diagnosis Comments CTA CHEST Routine 07/15/2025 4:02 PM CDT Pulmonary nodules CT GENERIC 07/03/2025 CT CHEST HIGH RESOLUTION WO CON Routine 06/18/2025 12:47 PM CDT Chronic obstructive pulmonary disease, unspecified COPD type ([facility]) USE ECHOCARDIOGRAM Routine 05/26/2025 1: 14 PM CDT Moderate tricuspid regurgitation SIX MINUTE WALK Routine 05/23/2025 10:00 AM CDT Chronic obstructive pulmonary disease, unspecified COPD type ([facility] HHS/HCC) PULMONARY FUNCTION TEST Routine 05/23/2025 10:00 AM CDT Chronic obstructive pulmonary disease, unspecified COPD type ([facility] HHS/HCC) PFT GENERIC (SCAN ORDER) 05/23/2025 COLONOSCOPY GENERIC (SCAN ORDER) 08/07/2024 BONE DENSITY GENERIC (SCAN ORDER) 05/17/2023 HEPATITIS C ANTIBODY Routine 09/06/2021 2:18 PM CDT Encounter for medical examination to establish care from Last 3 Months or Most Recently Relevant to Health Maintenance Results * CTA CHEST (07/15/2025 4:02 PM CDT) Anatomical Region Laterality Modality Chest Computed Tomogra phy 07/23/2025 11:5 7 AM CDT Impressions 07/23/2025 1:13 PM CDT IMPRESSION: 1. No acute pulmonary embolism. 2. No suspicious lung lesion. 3. Stable 5 mm nodule in anterior right upper lobe. No follow-up needed. Stable since 2022. 4. Advanced coronary artery calcifications. 5. Possible greater than 70% hemodynamically significant stenosis at the origin of the left subclavian artery. Please correlate with upper extremity blood pressures. 6. Asymmetric soft plaque formation in the right lateral aspect of the descending thoracic aorta at the level of prior possible lung lesion. This was present on prior noncontrast [address] CT[address] Measures 2.1 x 1.3 cm in the axial plane. Measured 1.7 x 1.0 cm. Borderline dilated descending thoracic aorta at this site. Referred By: DENZEL HANSON Interpreted By: Diallo Ahumada MD, 07/23/2025 11:57 AM Narrative 07/23/2025 1:13 PM CDT [facility] [address] [place], [place] [address] EXAMINATION: CTA CHEST WITH CONTRAST EXAM DATE/TIME: 07/15/2025 3:23 PM REASON FOR EXAM: nodule COMPARISON: 06/18/2025. 01/02/2023 TECHNIQUE: Computed tomography angiography was performed of the chest after administration of intravenous contrast, 80 cc of Isovue-370, according to routine protocol. Additional 3-D reconstructions and postprocessing were performed independently by the attending radiologist and a separate dedicated 3-D workstation. A dose lowering technique was used for this procedure, which may include, but is not limited to, dose reduction technique, automated exposure control, iterative reconstruction, ALARA (As Low As Reasonably Achievable), or Image Gently techniques. FINDINGS: VASCULAR FINDINGS: Adequate opacification of the pulmonary arteries. No evidence of acute pulmonary embolism.. Atherosclerotic aorta without ascending aorta dilatation or dissection. . Advanced calcified plaque formation at the origin of the left subclavian artery with possible greater than 70% hemodynamically significant stenosis. Please correlate with upper extremity blood pressures.. Advanced coronary artery calcifications. At the level of prior possible lung lesion in the medial right lower lobe, there is actually mediastinal soft tissue prominence. No adjacent lung lesion noted. Differential considerations are duplication cyst versus prominent right lateral plaque formation from the descending thoracic aorta. Appears to be separate from the adjacent esophagus. Due to slight outpouching of the right lateral aspect of the descending thoracic aorta at this site, this is most likely asymmetric soft plaque. On image 49 of series 10 and image 106 of series 6. Measures approximately 2.1 x 1.3 cm in the axial plane.. This was subtle but was present on prior noncontrast [address] CT[address] Measured 1.7 x 1.0 cm.. The descending aorta at this site measures 4.0 x 2.8 cm. NONVASCULAR FINDINGS: On lung windows, no suspicious pulmonary lesion, pneumothorax, or pleural effusion.. Stable 5 mm nodule in anterior right upper lobe on image 60 of series 8. Stable since 2022 exam and considered benign. No new pulmonary nodules. Stable emphysematous change. Stable scar formation in both lung bases and lingular segment On soft tissue windows, no axillary or supraclavicular lymphadenopathy. On mediastinal windows, no evidence of hilar or mediastinal lymphadenopathy. Heart size normal. No pericardial effusion. Limited evaluation of the upper abdomen demonstrates no acute abnormality. On bone windows, no suspicious skeletal lesion or acute compression fracture deformity. Procedure Note Diallo Ahumada MD - 07/23/[address] [address] EXAMINATION: CTA CHEST WITH CONTRAST EXAM DATE/TIME: 07/15/2025 3:23 PM REASON FOR EXAM: nodule COMPARISON: 06/18/2025. 01/02/2023 TECHNIQUE: Computed tomography angiography was performed of the chestafter administration of intravenous contrast, 80 cc of Isovue-370,according to routine protocol. Additional 3-D reconstructions andpostprocessing were performed independently by the attending radiologistand a separate dedicated 3-D workstation. A dose lowering technique was used for this procedure, which may include,but is not limited to, dose reduction technique, automated exposurecontrol, iterative reconstruction, ALARA (As Low As ReasonablyAchievable), or Image Gently techniques. FINDINGS: VASCULAR FINDINGS: Adequate opacification of the pulmonary arteries. No evidence of acutepulmonary embolism.. Atherosclerotic aorta without ascending aorta dilatation or dissection.. Advanced calcified plaque formation at the origin of the left subclavianartery with possible greater than 70% hemodynamically significantstenosis. Please correlate with upper extremity blood pressures.. Advanced coronary artery calcifications. At the level of prior possible lung lesion in the medial right lower lobe,there is actually mediastinal soft tissue prominence. No adjacent lunglesion noted. Differential considerations are duplication cyst versusprominent right lateral plaque formation from the descending thoracicaorta. Appears to be separate from the adjacent esophagus. Due to slight outpouching of the right lateral aspect of the descendingthoracic aorta at this site, this is most likely asymmetric soft plaque.On image 49 of series 10 and image 106 of series 6. Measures approximately 2.1 x 1.3 cm in the axial plane.. This was subtle but was present on prior noncontrast [address] Measured1.7 x 1.0 cm.. The descending aorta at this site measures 4.0 x 2.8 cm. NONVASCULAR FINDINGS: On lung windows, no suspicious pulmonary lesion, pneumothorax, or pleuraleffusion.. Stable 5 mm nodule in anterior right upper lobe on image 60 of series 8.Stable since 2022 exam and considered benign. No new pulmonary nodules. Stable emphysematous change. Stable scarformation in both lung bases and lingular segment On soft tissue windows, no axillary or supraclavicular lymphadenopathy. On mediastinal windows, no evidence of hilar or mediastinallymphadenopathy. Heart size normal. No pericardial effusion. Limited evaluation of the upper abdomen demonstrates no acuteabnormality. On bone windows, no suspicious skeletal lesion or acute compressionfracture deformity. IMPRESSION: 1. No acute pulmonary embolism. 2. No suspicious lung lesion. 3. Stable 5 mm nodule in anterior right upper lobe. No follow-up needed.Stable since 2022. 4. Advanced coronary artery calcifications. 5. Possible greater than 70% hemodynamically significant stenosis at theorigin of the left subclavian artery. Please correlate with upperextremity blood pressures. 6. Asymmetric soft plaque formation in the right lateral aspect of thedescending thoracic aorta at the level of prior possible lung lesion. Thiswas present on prior noncontrast [address] CT[address] Measures 2.1 x 1.3 cm in theaxial plane. Measured 1.7 x 1.0 cm. Borderline dilated descending thoracicaorta at this site. Referred By: DENZEL HANSON Interpreted By: Diallo Ahumada MD, 07/23/2025 11:57 AM Denzel Hanson MD CT Final Result * CT GENERIC (07/03/2025) Anatomical Region Laterality Modality Other 07/03/2025 [facility] Scanned SCANNING Final Resu lt * CT CHEST HIGH RESOLUTION WO CON (06/18/2025 12:47 PM CDT) Anatomical Region Laterality Modality Chest Computed Tomogra phy 06/25/2025 11:3 9 AM CDT Impressions 06/25/2025 12:09 PM CDT IMPRESSION: 1. Along the medial pleural surface of the right lower lobe there is a pulmonary nodule measuring 1.7 x 1.3 cm, not seen on prior imaging. Unclear if this arises from the lung, pleura, or mediastinum. Neoplasm is a concern. Follow-up CT with contrast recommended. To ensure enhancement of the adjacent aorta, CTA is appropriate. Depending on the results of this follow-up exam, PET CT and/or sampling may be appropriate. 2. Mild emphysema. 3. Atherosclerosis and coronary calcifications. 4. Indeterminate hypodense lesion of the pancreatic head. Nonemergent MRI or CT with and without contrast recommended. Referred By: DENZEL HANSON Interpreted By: Srinath Wellington MD, 06/25/2025 11:39 AM Narrative 06/25/2025 12:09 PM CDT [address] [address] EXAMINATION: HIGH-RESOLUTION CT CHEST WITHOUT CONTRAST EXAM DATE: 06/18/2025 12:34 PM REASON FOR EXAM: COPD, history of smoking Pulmonary nodules. COMPARISON: 01/04/2024 TECHNIQUE: High-resolution axial images through the lung in prone position without intravenous contrast. Both inspiratory and expiratory images obtained. Multiplanar reconstructions. Dose lowering technique was used for this study which may include, but is not limited to, dose reduction techniques, automated exposure control, use of iterative reconstruction and ALARA (As low As Reasonably Achievable)/Image Gently techniques. FINDINGS: Subsegmental atelectasis of the lingula and anterior right upper lobe and anterior right middle lobe. Bilateral basilar atelectasis. Along the medial pleural surface of the right lower lobe there is a pulmonary nodule measuring 1.7 x 1.3 cm axial image 216, not seen on prior imaging. Unclear if this arises from the lung, pleura, or mediastinum. No pneumothorax or pleural effusion. Mild upper lobe predominant centrilobular emphysema. No significant fibrotic changes or bronchiectasis. Calcified granulomas indicate healed granulomatous disease. No axillary or supraclavicular lymphadenopathy. Heart size normal. No pericardial effusion. Atherosclerosis and coronary calcifications. Dexter normal hilar lymphadenopathy. Limited evaluation of the upper abdomen and straight centimeters indeterminate hypodense lesion of the pancreatic head. Bones: No suspicious skeletal lesion or evidence of fracture. Moderate degenerative changes of the spine. Procedure Note Srinath Wellington MD - 06/25/[address] [address] EXAMINATION: HIGH-RESOLUTION CT CHEST WITHOUT CONTRAST EXAM DATE: 06/18/2025 12:34 PM REASON FOR EXAM: COPD, history of smoking Pulmonary nodules. COMPARISON: 01/04/2024 TECHNIQUE: High-resolution axial images through the lung in prone positionwithout intravenous contrast. Both inspiratory and expiratory imagesobtained. Multiplanar reconstructions. Dose lowering technique was used for this study which may include, but isnot limited to, dose reduction techniques, automated exposure control, use of iterativereconstruction and ALARA (As low As Reasonably Achievable)/Image Gently techniques. FINDINGS: Subsegmental atelectasis of the lingula and anterior right upper lobe andanterior right middle lobe. Bilateral basilar atelectasis. Along the medial pleural surface of the right lower lobe there is apulmonary nodule measuring 1.7 x 1.3 cm axial image 216, not seen on priorimaging. Unclear if this arises from the lung, pleura, or mediastinum. No pneumothorax or pleural effusion. Mild upper lobe predominant centrilobular emphysema. No significant fibrotic changes or bronchiectasis. Calcified granulomas indicate healed granulomatous disease. No axillary or supraclavicular lymphadenopathy. Heart size normal. No pericardial effusion. Atherosclerosis and coronary calcifications. Dexter normal hilar lymphadenopathy. Limited evaluation of the upper abdomen and straight centimetersindeterminate hypodense lesion of the pancreatic head. Bones: No suspicious skeletal lesion or evidence of fracture. Moderatedegenerative changes of the spine. IMPRESSION: 1. Along the medial pleural surface of the right lower lobe there is apulmonary nodule measuring 1.7 x 1.3 cm, not seen on prior imaging.Unclear if this arises from the lung, pleura, or mediastinum. Neoplasm karolina concern. Follow-up CT with contrast recommended. To ensure enhancementof the adjacent aorta, CTA is appropriate. Depending on the results ofthis follow-up exam, PET CT and/or sampling may be appropriate. 2. Mild emphysema. 3. Atherosclerosis and coronary calcifications. 4. Indeterminate hypodense lesion of the pancreatic head. Nonemergent MRIor CT with and without contrast recommended. Referred By: DENZEL HANSON Interpreted By: Srinath Wellington MD, 06/25/2025 11:39 AM us Denzel Hanson MD CT Final Result * USE ECHOCARDIOGRAM (05/26/2025 1:14 PM CDT) Anatomical Region Laterality Modality Cardiac Echocardiogram 05/26/2025 12:3 6 PM CDT Narrative 05/28/2025 8:04 AM CDT Echocardiography Report Pat.Name: LIDIA MONTES Pat.ID: [id number] St.Date: 05/26/2025 Exam Time: 12:36:00 PM Study Type:ECHO WITH CARDIAC DOPPLER COMP Height: 63 in Weight: 145 lb BSA: 1.69 m2 Age: 1 1945,79Y Sex: F BP: 140/50 Sonogrphr: Rosangela Grijalva Pat. Stat.:Outpatient CPT - 4: [id number] Reason for Study:Tricuspid regurgitation Procedures: 2D, M-mode, Doppler, Color Flow, The study quality is technically adequate. Race: W ++++++++++++++++++++++++++++++++++++ SUMMARY: ++++++++++++++++++++++++++++++++++++ The left ventricular size is normal. The left ventricular systolic function is normal. Estimated left ventricular ejection fraction is >70%. Mild concentric left ventricular hypertrophy. Left ventricular diastolic function is abnormal (grade 2 - pseudonormal pattern). The mean left atrial pressure is elevated. Wall motion appears normal in all segments. The left atrial volume is mildly increased (34- 41ml/M2). Right atrial size is mildly enlarged. Estimated right atrial pressure of 8 mmHg. Inferior vena cava shows <50% collapse with respiration consistent with elevated right atrial pressure. No evidence of aortic valve stenosis. No evidence of aortic valve regurgitation. Trace mitral regurgitation. A trace of pulmonic regurgitation. Mild to moderate tricuspid regurgitation. Right ventricular systolic pressure is 40-50 mmHg suggestive of mild to moderate pulmonary hypertension. ++++++++++++++++++++++++++++++++++++ FINDINGS: ++++++++++++++++++++++++++++++++++++ LV: The left ventricular size is normal. The left ventricular systolic function is normal. Estimated left ventricular ejection fraction is >70%. Mild concentric left ventricular hypertrophy. The septal E/e' is indeterminate at 8-15. The lateral E/e' is indeterminate at 9-11. Left ventricular diastolic function is abnormal (grade 2 - pseudonormal pattern). The mean left atrial pressure is elevated. WM: Wall motion appears normal in all segments. RV: The right ventricular size is normal. Right ventricular systolic function is normal. TAPSE = 29.1mm (<16 mm indicates systolic RV dysfunction). IVS: Intraventricular septum is normal. LA: The left atrial volume is mildly increased (34- 41ml/M2). RA: Right atrial size is mildly enlarged. IAS: Atrial septum is normal. STEVEN: No evidence of pericardial effusion. AO: Normal aortic root. PA: Estimated right atrial pressure of 8 mmHg. SVn: Inferior vena cava is normal. Inferior vena cava shows <50% collapse with respiration consistent with elevated right atrial pressure. AV: The aortic valve is trileaflet. No evidence of aortic valve stenosis. No evidence of aortic valve regurgitation. MV: Trace mitral regurgitation. No evidence of mitral stenosis. PV: No evidence of pulmonic valve stenosis. A trace of pulmonic regurgitation. TV: Mild to moderate tricuspid regurgitation. Right ventricular systolic pressure is 40-50 mmHg suggestive of mild to moderate pulmonary hypertension. No evidence of tricuspid valve stenosis. ++++++++++++++++++++++++++++++++++++ MEASUREMENTS: ++++++++++++++++++++++++++++++++++++ DOPPLER PV Regurg Flow PV pkVel 133 cm/s TV Forward Flow TV E/A 1.07 Aortic Valve Cardiovascular 1.96 cm Aortic Root Hi 2.73 cm LVOT/AoV (FEED AND FARM MANAGEMENT ADVISER) ( 0.44 Left atrial hi 4.66 cm AV Antegrade Flow Peak Velocity ( 2.08 m/s Mean Velocity ( 1.28 m/s Velocity Time I 42.3 cm AV Antegrade Flow Simplified Bernoulli Gradient pressu 17.3 mmHg Gradient pressu 7.4 mmHg AV Continuity Equation by Velocity Time Integral Aortic Valve Ar 1.84 cm2 AoV Area Index 1.09 Left Ventricle Stroke Volume ( 77.7 ml Cardiac Output 4.66 liter per minute LV Antegrade Flow Peak Velocity ( 0.92 m/s Mean Velocity ( 0.74 m/s Velocity Time I 25.8 cm LV Antegrade Flow Simplified Bernoulli Gradient pressu 3.4 mmHg Gradient pressu 2.3 mmHg Mitral Valve Mitral Valve E- 0.203 second Mean Myocardial 9.4 centimeter/second Myocardial Velo 10.1 centimeter/second Ratio of Mitral 10 Myocardial Velo 8.7 centimeter/second Ratio of Mitral 9.32 Mitral Valve E 0.92 Ratio of Mitral 10.8 MV Antegrade Flow Mitral Valve E- 0.94 m/s Mitral Valve A- 1.02 m/s PV Antegrade Flow Peak Velocity ( 1.08 m/s Mean Velocity ( 0.7 m/s Velocity Time I 21.1 cm PV Antegrade Flow Simplified Bernoulli Gradient pressu 4.7 mmHg Gradient pressu 2.2 mmHg PV Regurgitant Flow Pressure gradie 7.1 mmHg Tricuspid Valve Tricuspid Valve 0.46 m/s Tricuspid Valve 0.43 m/s TV Regurgitant Flow MaximumTricuspi 3.08 m/s MaximumTricuspi 37.8 mmHg 2D Left Ventricle LVIDd 3.94 cm (3.6-5.2) LVEDV BP 42 ml LV EDV 52.2 ml LVESV BP 11.6 ml LV ESV 11.8 ml LV EF 77.4 % LV EDV 34.2 ml Left Ventricula -14.4 % LV ESV 10.7 ml LV EF 68.7 % LV EF BP 72.4 % Left Ventricula -17.2 % Left Ventricula -15.8 % Left Atrium Left Atrium Vol 33.6 ml/m2 LA Biplane Left Atrium Vol 56.8 ml LA Single Plane Left Atrium mk 5.7 cm Left Atrium mk 5.86 cm Left Atrium Vol 52.6 ml Left Atrium Vol 60.2 ml LV Teichholz Interventricula 1.17 cm Left Ventricle 1.43 cm Left Ventricle 1.22 cm Heart rate 65 Heart beat per minute Right Atrium RA sys Area 17.9 cm2 Right Ventricle Right Ventricul 1.99 cm RVIDd 3.32 cm MMODE Tricuspid Valve Tricuspid annul 2.91 cm <Electronic Signature> 05/28/2025 08:04 AM Wagner Steen M.D. Procedure Note Wagner Steen MD - 05/28/2025 Echocardiography Report Pat.Name: LIDIA MONTES Pat.ID: [id number] St.Date: 05/26/2025 Exam Time: 12:36:00 PM Study Type:ECHO WITH CARDIAC DOPPLER COMP Height: 63 in Weight: 145 lb BSA: 1.69 m2 Age: 1 1945,79Y Sex: F BP: 140/50 Sonogrphr: Rosangela Grijalva Pat. Stat.:Outpatient CPT - 4: [id number] Reason for Study:Tricuspid regurgitation Procedures: 2D, M-mode, Doppler, Color Flow, The study quality is technically adequate. Race: W ++++++++++++++++++++++++++++++++++++ SUMMARY: ++++++++++++++++++++++++++++++++++++ The left ventricular size is normal. The left ventricular systolic function is normal. Estimated left ventricular ejection fraction is >70%. Mild concentric left ventricular hypertrophy. Left ventricular diastolic function is abnormal (grade 2 - pseudonormal pattern). The mean left atrial pressure is elevated. Wall motion appears normal in all segments. The left atrial volume is mildly increased (34- 41ml/M2). Right atrial size is mildly enlarged. Estimated right atrial pressure of 8 mmHg. Inferior vena cava shows <50% collapse with respiration consistent with elevated right atrial pressure. No evidence of aortic valve stenosis. No evidence of aortic valve regurgitation. Trace mitral regurgitation. A trace of pulmonic regurgitation. Mild to moderate tricuspid regurgitation. Right ventricular systolic pressure is 40-50 mmHg suggestive of mild to moderate pulmonary hypertension. ++++++++++++++++++++++++++++++++++++ FINDINGS: ++++++++++++++++++++++++++++++++++++ LV: The left ventricular size is normal. The left ventricular systolic function is normal. Estimated left ventricular ejection fraction is >70%. Mild concentric left ventricular hypertrophy. The septal E/e' is indeterminate at 8-15. The lateral E/e' is indeterminate at 9-11. Left ventricular diastolic function is abnormal (grade 2 - pseudonormal pattern). The mean left atrial pressure is elevated. WM: Wall motion appears normal in all segments. RV: The right ventricular size is normal. Right ventricular systolic function is normal. TAPSE = 29.1mm (<16 mm indicates systolic RV dysfunction). IVS: Intraventricular septum is normal. LA: The left atrial volume is mildly increased (34- 41ml/M2). RA: Right atrial size is mildly enlarged. IAS: Atrial septum is normal. STEVEN: No evidence of pericardial effusion. AO: Normal aortic root. PA: Estimated right atrial pressure of 8 mmHg. SVn: Inferior vena cava is normal. Inferior vena cava shows <50% collapse with respiration consistent with elevated right atrial pressure. AV: The aortic valve is trileaflet. No evidence of aortic valve stenosis. No evidence of aortic valve regurgitation. MV: Trace mitral regurgitation. No evidence of mitral stenosis. PV: No evidence of pulmonic valve stenosis. A trace of pulmonic regurgitation. TV: Mild to moderate tricuspid regurgitation. Right ventricular systolic pressure is 40-50 mmHg suggestive of mild to moderate pulmonary hypertension. No evidence of tricuspid valve stenosis. ++++++++++++++++++++++++++++++++++++ MEASUREMENTS: ++++++++++++++++++++++++++++++++++++ DOPPLER PV Regurg Flow PV pkVel 133 cm/s TV Forward Flow TV E/A 1.07 Aortic Valve Cardiovascular 1.96 cm Aortic Root Hi 2.73 cm LVOT/AoV (FEED AND FARM MANAGEMENT ADVISER) ( 0.44 Left atrial hi 4.66 cm AV Antegrade Flow Peak Velocity ( 2.08 m/s Mean Velocity ( 1.28 m/s Velocity Time I 42.3 cm AV Antegrade Flow Simplified Bernoulli Gradient pressu 17.3 mmHg Gradient pressu 7.4 mmHg AV Continuity Equation by Velocity Time Integral Aortic Valve Ar 1.84 cm2 AoV Area Index 1.09 Left Ventricle Stroke Volume ( 77.7 ml Cardiac Output 4.66 liter per minute LV Antegrade Flow Peak Velocity ( 0.92 m/s Mean Velocity ( 0.74 m/s Velocity Time I 25.8 cm LV Antegrade Flow Simplified Bernoulli Gradient pressu 3.4 mmHg Gradient pressu 2.3 mmHg Mitral Valve Mitral Valve E- 0.203 second Mean Myocardial 9.4 centimeter/second Myocardial Velo 10.1 centimeter/second Ratio of Mitral 10 Myocardial Velo 8.7 centimeter/second Ratio of Mitral 9.32 Mitral Valve E 0.92 Ratio of Mitral 10.8 MV Antegrade Flow Mitral Valve E- 0.94 m/s Mitral Valve A- 1.02 m/s PV Antegrade Flow Peak Velocity ( 1.08 m/s Mean Velocity ( 0.7 m/s Velocity Time I 21.1 cm PV Antegrade Flow Simplified Bernoulli Gradient pressu 4.7 mmHg Gradient pressu 2.2 mmHg PV Regurgitant Flow Pressure gradie 7.1 mmHg Tricuspid Valve Tricuspid Valve 0.46 m/s Tricuspid Valve 0.43 m/s TV Regurgitant Flow MaximumTricuspi 3.08 m/s MaximumTricuspi 37.8 mmHg 2D Left Ventricle LVIDd 3.94 cm (3.6-5.2) LVEDV BP 42 ml LV EDV 52.2 ml LVESV BP 11.6 ml LV ESV 11.8 ml LV EF 77.4 % LV EDV 34.2 ml Left Ventricula -14.4 % LV ESV 10.7 ml LV EF 68.7 % LV EF BP 72.4 % Left Ventricula -17.2 % Left Ventricula -15.8 % Left Atrium Left Atrium Vol 33.6 ml/m2 LA Biplane Left Atrium Vol 56.8 ml LA Single Plane Left Atrium mk 5.7 cm Left Atrium mk 5.86 cm Left Atrium Vol 52.6 ml Left Atrium Vol 60.2 ml LV Teichholz Interventricula 1.17 cm Left Ventricle 1.43 cm Left Ventricle 1.22 cm Heart rate 65 Heart beat per minute Right Atrium RA sys Area 17.9 cm2 Right Ventricle Right Ventricul 1.99 cm RVIDd 3.32 cm MMODE Tricuspid Valve Tricuspid annul 2.91 cm <Electronic Signature> 05/28/2025 08:04 AM Wagner Steen M.D. Ovidio Valverde MD ECHO Final Res ult * Six Minute Walk ([address]9913) (05/23/2025 10:00 AM CDT) Narrative [facility] - 05/23/2025 10:00 AM CDT Denzel Hanson MD 06/02/2025 12:09 PM [facility] PULMONARY FUNCTION TESTS Lidia Montes 79-year-old Height 64 inches Weight 145 Lbs 06/02/2025 INTERPRETATION Please see technologist's comments. SPIROMETRY: Prebronchodilator FEV1 0.97 L, 49% predicted. FVC 1.90 L, 74% predicted. FEV1/FVC ratio 51% Postbronchodilator FEV1 1.15 L, 58% predicted. FVC 2.30 L, 89% predicted. FEV1/FVC ratio 50% There is A significant response to bronchodilator administration. Inspection of the patient's flow-volume loops shows normal configuration of the inspiratory and expiratory limbs LUNG VOLUMES: TLC 3.04 L, 62% predicted. RV 0.82 L, 38% predicted. DLCO: Diffusing capacity unadjusted for Hb and COHb is 41% 6-minute walk test: At rest on room air her oxygen saturation was 96%. She walked 270 feet. 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 Moderately reduced unadjusted DLCO There is a positive bronchodilator response 6-minute walk test without the need for supplemental oxygen Denzel Hanson MD Denzel Hanson MD PFT ORDERABLES Final Result [facility] [address] [place] [address], [place] [phone] * Complete PFT (pre/post Josue, Lung Vol, Diff Capacity) (11034, 34310, [id number], [id number]) (05/23/2025 10:00 AM CDT) Narrative [facility] - 05/23/2025 10:00 AM CDT Denzel Hanson MD 06/02/2025 12:09 PM [facility] PULMONARY FUNCTION TESTS Lidia Montes 79-year-old Height 64 inches Weight 145 Lbs 06/02/2025 INTERPRETATION Please see technologist's comments. SPIROMETRY: Prebronchodilator FEV1 0.97 L, 49% predicted. FVC 1.90 L, 74% predicted. FEV1/FVC ratio 51% Postbronchodilator FEV1 1.15 L, 58% predicted. FVC 2.30 L, 89% predicted. FEV1/FVC ratio 50% There is A significant response to bronchodilator administration. Inspection of the patient's flow-volume loops shows normal configuration of the inspiratory and expiratory limbs LUNG VOLUMES: TLC 3.04 L, 62% predicted. RV 0.82 L, 38% predicted. DLCO: Diffusing capacity unadjusted for Hb and COHb is 41% 6-minute walk test: At rest on room air her oxygen saturation was 96%. She walked 270 feet. 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 Moderately reduced unadjusted DLCO There is a positive bronchodilator response 6-minute walk test without the need for supplemental oxygen Denzel Hanson MD Denzel Hanson MD PFT ORDERABLES Final Result [facility] [address] [place] [address], [place] [phone] * PFT GENERIC (SCAN ORDER) (05/23/2025) 05/23/2025 [employer] [facility] Scanned SCANNING Final Resu lt * COLONOSCOPY GENERIC (SCAN ORDER) (08/07/2024) 08/07/2024 [employer] [facility] Scanned SCANNING Final Resu lt * BONE DENSITY GENERIC (05/17/2023) Anatomical Region Laterality Modality Other 05/17/2023 [facility] Scanned SCANNING Final Resu lt * HEPATITIS C ANTIBODY (09/06/2021 2:18 PM CDT) HEPATITIS C AB NON-REACTI VE NON-REACT TAMIKA 09/06/2021 9:55 PM CDT [facility] Comment: ANTIBODIES TO HCV NOT DETECTED. DOES NOT EXCLUDE THE POSSIBILITY OF EXPOSURE TO HCV. 09/06/2021 2:18 PM CDT Jose Zepeda MD LABORATORY Final Result [facility] [address] [place] [address], [id number] from Last 3 Months or Most Recently Relevant to Health Maintenance Insurance [employer] MEDICARE JABARI VALENTINE [id number] Advance Directives Documents on File Type Date Recorded Patient Tobacco Sweeper Expl anation Legal Documents 10/14/2021 COVID 19 VAC CINATION RECORD CARD * Full Code (Latest Code Status on File) Date Activated Date Inactivated Comments 03/30/2023 11:45 AM 03/31/2023 4:23 PM Care Teams Financial Dealers Relationship Specialty Start Date End Date Denzel Harris DO [address] [place], [place] [id number] PCP - General FAMILY PRACTICE 09/04/24 Ovidio Valverde MD [facility] [address] [place] [address] [phone] Physician CARDIOVASCULAR DISEASE 09/30/21 Tadeo Frost MD [facility]. [address] [place] [address] [phone] Referring Physician VASCULAR SURGERY 09/30/21
--- OUTSIDE RECORDS SUMMARY | 2025-08-18 15:55 | XMS_ITS | Encounter Summary ---
Author Organization [facility] Address [facility] [place] [address] Care Team Providers Care Spinneret Cleaner Name Role Phone Jackson Morales MD Unavailable [phone] Ovidio Valverde MD Unavailable [phone] Tadeo Frost MD Unavailable Jackson Morales MD Primary Care Provider [phone] Jose Zepeda MD Primary Care Provider [phone] Yves Harris DO Primary Care Provider + Encounter Details Date Type Department Care Team (Late st Contact Info) Description 05/10/2023 MyChart Message [facility] - [facility] [address] [place], [place] [id number] [facility] Provider Air Quality Message Social History Tobacco Use Types Packs/Day Years Used Date Smoking Tobacco: Every Day Cigarettes 1 46 Smokeless Tobacco: Never Comments:02-18-2022 currently smokes 1/2 PPD ; counseled by dr Zepeda Alcohol Use Standard Drinks/Week Comments Yes 0 (1 standard drink = 0.6 oz pure alcohol) rarely (1-2 times /year) has a glass of wine Humiliation, Afraid, Rape, and Kick questionnair e [...] 03/30/2023 How often do you attend chur or tenriism services? More than 4 times per year 03/30/2023 Do you belong to any clubs o r organizations such as anglican groups, unions, fraternal or athletic groups, or [...] Date Recorded Patient Health Questionnaire-2 Score 0 12/23/2022 [facility] of Occupat ional Health - Occupational Stress [...] place to sleep or slept in a mcc (including now)? No 03/30/2023 Comments No Sex and Gender Information Value Date Recorded Sex Assigned at Female 11/28/2024 2:57 PM CYBER FORENSICS ANALYST Legal Sex Female 2:49 PM CDT Gender Identity Female 03/05/2025 2:26 PM CDT Sexual Orientation Not on file documented as of this encounter Functional Status * Are you deaf or do you have serious difficulty hearing Answer Date of Assessment Author Status No 03/30/2023 3:44 PM CDT Enrique Taylor, RN Active * Are you blind or do you have serious difficulty seeing, even when wearing glasses? Answer Date of Assessment Author Status No 03/30/2023 3:44 PM CDT Enrique Taylor, RN Active * Do you have serious difficulty walking or climbing stairs? Answer Date of Assessment Author Status No 03/30/2023 3:44 PM Enrique Conner, RN Active * Do you have difficulty dressing or bathing? Answer Date of Assessment Author Status No 03/30/2023 3:44 PM AGT Enrique Taylor, RN Active * Because of a physical, mental, or emotional condition, do you have difficulty doing errands alone such as visiting a doctor's office or shopping? Answer Date of Assessment Author Status No 03/30/2023 3:44 PM Enrique Conner RN Active documented as of this encounter Mental Status * Because of a physical, mental, or emotional condition, do you have serious difficulty concentrating, remembering, or making decisions? Answer Entry Date Author Status No 03/30/2023 3:44 PM Enrique Conner, RN Active documented in this encounter Plan of Treatment Upcoming Encounters Date Type Department Care Team (Late st Contact Info) Description 10/22/2025 1:00 PM CYBER FORENSICS ANALYST Office Visit [facility]ty [facility] - [address] [facility] [address] [place] [address] Yves Giles MD 3 [facility] [address] [place] [address] 10/27/2025 12:15 PM CYBER FORENSICS ANALYST Office Visit [facility] [address] [facility] [address] [place] [address] Ovidio Valverde MD Three [facility] [address] [place] [address] 11/17/2025 1:40 PM CYBER FORENSICS ANALYST Office Visit [facility] Medical [facility] Family & Internal Medicine - [place] [address] [place] [address] Yves Harris DO [address] [place] [address] 11/24/2025 11:00 AM CYBER FORENSICS ANALYST Appointment [facility] [place] [address] Tadeo Frost MD Three [facility]. [facility] [address] [place] [address] 01/13/2026 11:00 AM CYBER FORENSICS ANALYST Appointment [facility] [place] [address] Tadeo Frost MD Three [facility]. [facility] [address] [place] [address] 07/31/2026 1:30 PM CDT [place] [address] Roberto Mariscal MD 3 [facility] [address] [place] [address] 08/13/2026 11:45 AM CDT Office Visit [facility] THREE [facility], [facility] [address] [place] [address] Roberto Mariscal MD 3 [facility] [address] [place] [address] documented as of this encounter Visit Diagnoses Not on filedocumented in this encounter Additional Health Concerns Infection Onset Date Last Indicated Resolved Time COVID-19 Rule Out 01/22/2025 01/22/2025 01/22/2025 5:18 AM CDT Assessment Noted Time PHQ-9 Depression Total Score: 0 09/29/20 21 1:51 PM CYBER FORENSICS ANALYST documented as of this encounter Care Teams Spinneret Cleaner Relationship Specialty Start Date End Date [place] [address] [place] [address] PCP - General FAMILY MEDICINE SPORTS MEDICINE 06/13/24 07/21/24 Jose Zepeda MD [address] [address] PCP - General INTERNAL MEDICINE 07/22/24 09/03/24 Yves Harris DO [address] [place] [address] PCP - General FAMILY PRACTICE 09/04/24 Jackson Morales MD FAMILY MEDICINE SPORTS MEDICINE 09/30/21 07/07/24 Ovidio Valverde MD Three [facility]., [address] [place] [id number] Physician CARDIOVASCULAR DISEASE 09/30/21 Tadeo Frost MD Three [facility]. [address] [place], [place] [address] Referring Physician VASCULAR SURGERY 09/30/21 documented as of this encounter
--- OUTSIDE RECORDS SUMMARY | 2025-08-18 15:55 | XMS_ITS | Encounter Summary ---
Author Organization [facility] Address [address] [place] [address] Care Team Providers Care Creative Director Name Role Phone Jackson Morales MD Unavailable [phone] Ovidio Valverde MD Unavailable [phone] Tadeo Frost MD Unavailable Amee Montoya RN Unavailable [phone] Jackson Morales MD Primary Care Provider [phone] Jose Zepeda MD Primary Care Provider [phone] Yves Harris DO Primary Care Provider + Encounter Details Date Type Department Care Team (Latest Contact Info) Description 09/10/2022 VitaFlavort Message Enc [facility] Medical Group Multispecialty Care - [place] [address] [address] [place] [address] Jose Zepeda MD [address] [facility] [address] [place] [address] Sertraline medication Social History Tobacco Use Types Packs/Day Years Used Date Smoking Tobacco: Every Day Cigarettes 1.5 46 Smokeless Tobacco: Never Comments:02-18-2022 currently smokes 1/2 PPD ; counseled by dr Zepeda Alcohol Use Standard Drinks/Week Comments Yes 0 (1 standard drink = 0.6 oz pure alcohol) rarely (1-2 times /year) has a glass of wine PHQ-2 Answer Date Recorded PHQ-2 Score - If the patient scores above 3, please move on to questions 3-9 1 09/07/2022 Comments No Sex and Gender Information Value Date Recorded Sex Assigned at Female 11/28/2024 2:57 PM EDI MANAGER Legal Sex Female 2:49 PM CDT Gender Identity Female 03/05/2025 2:26 PM CDT Sexual Orientation Not on file COVID-19 Exposure Response Date Recorded In the last 10 days, have yo u been in contact with someone who was confirmed or suspected to have Coronavirus/COVID-19? No / Unsure 09/07/2022 1:49 PM CDT documented as of this encounter Plan of Treatment Upcoming Encounters Date Type Department Care Team (Late st Contact Info) Description 10/22/2025 1:00 PM EDI MANAGER Office Visit [facility] Medical [facility] Pul[facility]ology Specialty Clinic - [place] [address] [address] [facility] [address] [place] [address] Yves Giles MD 3 [facility] [address] [place] [address] 10/27/2025 12:15 PM EDI MANAGER Office Visit [facility] [address] [facility] [address] [place] [address] Ovidio Valverde MD Three [facility] [address] [place] [address] 11/17/2025 1:40 PM EDI MANAGER Office Visit [facility] Medical Group Family & Internal Medicine - [place] [address] [place] [phone] Yves Harris DO [address] [place] [address] 11/24/2025 11:00 AM EDI MANAGER Appointment [facility] [place] [address] Tadeo Frost MD Three [facility]. [facility] [address] [place] [address] 01/13/2026 11:00 AM EDI MANAGER Appointment [facility] [address] Tadeo Frost MD Three [facility]. [facility] [address] [place] [address] 07/31/2026 1:30 PM CDT [place] [address] Roberto Mariscal MD 3 [facility] [address] [place] [address] 08/13/2026 11:45 AM CDT Office Visit [facility] THREE [facility], [facility] [address] [place] [address] Roberto Mariscal MD 3 [facility] [address] [place] [address] documented as of this encounter Visit Diagnoses Not on filedocumented in this encounter Additional Health Concerns Infection Onset Date Last Indicated Resolved Time COVID-19 Rule Out 01/22/2025 01/22/2025 01/22/2025 5:18 AM CDT Assessment Noted Time PHQ-9 Depression Total Score: 0 09/29/20 21 1:51 PM EDI MANAGER documented as of this encounter Care Teams Creative Director Relationship Specialty Start Date End Date Jackson [place] [address] PCP - General FAMILY MEDICINE SPORTS MEDICINE 06/13/24 07/21/24 Jose Zepeda MD [address] [facility] [address] [place] [address] PCP - General INTERNAL MEDICINE 07/22/24 09/03/24 Yves Harris DO [address] [place] [address] PCP - General FAMILY PRACTICE 09/04/24 Jackson Morales MD FAMILY MEDICINE SPORTS MEDICINE 09/30/21 07/07/24 Ovidio Valverde MD [facility], [address] [place], [place] [phone] Physician CARDIOVASCULAR DISEASE 09/30/21 Tadeo Frost MD Three [facility] [address] [place], [place] [phone] Referring Physician VASCULAR SURGERY 09/30/21 Amee Montoya, RN [address] [place], [place] [address] Identifier Horse (Ambulatory) REGISTERED NURSE 03/31/23 04/13/23 documented as of this encounter
--- OUTSIDE RECORDS SUMMARY | 2025-08-18 15:55 | XMS_ITS | Clinical Summary ---
Author Organization [place] [address] [place] Address [address] [place] [address] Care Team Providers Care Railroad Car Repairman Name Role Phone Unknown, Notinfile Primary Care Provider Unavail able Allergies Active Allergy Reactions Criticality Noted Date Comments Alendronate Rash Medium 09/06/2021 Aspirin GI bleeding 08/04/2023 Bupropion Other (See comments) 09/06/2021 Ringing in ears Ciprofloxacin Rash Medium 09/06/2021 Doxycycline Rash,Shortness of breath,Swelling High 09/06/2021 Ezetimibe Joint pain Low 09/06/2021 Fluocinolone Rash,Shortness of breath,Swelling High 09/06/2021 Glycopyrrolate Palpitations Low 09/06/2021 hypertension Nicotine Rash Medium 10/04/2021 Nicotine patch Penicillins Hives Medium 09/06/2021 Rosuvastatin Joint pain Low 09/06/2021 Pain Simvastatin Joint pain Low 09/06/2021 Varenicline Other (See comments) 10/04/2021 Behavioral change Medications lisinopriL (PRINIVIL,ZESTR IL) 10 mg tablet Take 1 tablet (10 mg total) by mouth daily 5 Active amLODIPine (NORVASC) 5 mg tablet Take 1 tablet (5 mg total) by mouth daily 4 Active propranolol LA (INDERAL LA) 60 mg 24 hr capsule Take 1 capsule (60 mg total) by mouth daily 5 Active meclizine (ANTIVERT) 25 mg tablet Take 0.5 tablets (12.5 mg total) by mouth 3 (three) times a day as needed 5 Active atorvastatin (LIPITOR) 40 mg tablet Take 1 tablet (40 mg total) by mouth daily 5 Active budesonide EC (ENTOCORT EC) 3 mg 24 hr capsule Take 1 capsule (3 mg total) by mouth early childhood lead teacher before breakfast Active Anoro Ellipta 62.5-25 mcg/actuation blister with device INHALE 1 PUFF INTO THE LUNGS DAILY. 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 Gender Identity Not on file Sexual Orientation Not on file Last Filed [...] - - Body Mass Index - - Plan of Treatment Health Maintenance Due Date Last Done Comments Depression Screening 1945 Fall Risk Assessment 1945 Hepatitis C Screening 1945 Osteoporosis Screening-Bone Density Scan 1945 DTaP/Tdap/Td Vaccine (1 - Tdap) 1957 Hepatitis B Screening 1964 Zoster Vaccine (2 of 3) 03/15/2008 01/19/2008 Well Visit 65+ 2011 Influenza Vaccine (#1) 2025 4, 09/20/2023, 09/07/2022, Additional history exists Pneumococcal vaccine 65+ Completed 06/27/2020, 1106/2017 Insurance [employer] MEDICARE [place] Care Teams Railroad Car Repairman Relationship Specialty Start Date End Date Unknown, Notinfile PCP - General 08/18/25
--- OUTSIDE RECORDS SUMMARY | 2025-08-18 15:55 | XMS_ITS | Encounter Summary ---
Author Organization [facility] Address [address] [place] [address] Care Team Providers Care Field Administrative Assistant Name Role Phone Ovidio Valverde MD Unavailable [phone] Tadeo Frost MD Unavailable Yves Harris DO Primary Care Provider + Encounter Details Date Type Department Care Team (Late st Contact Info) Description 09/20/2024 MyChart Message Enc [facility] Pulmonology Specialty Clinic - [address] [place] [address] Yves Giles MD 3 [facility] [address] [place], [place] [phone] Jerel Escalante Social History Tobacco Use Types Packs/Day Years Used Date Smoking Tobacco: Every Day Cigarettes 0.5 46 Smokeless Tobacco: Never Comments:08/04/23 between 1/2 to 1 ppd; counseled by provider Alcohol Use Standard Drinks/Week Comments Yes 0 [...] How often do you attend chur or methodist services? More than 4 times per year 03/30/2023 Do you belong to any clubs o r organizations such as scientology groups, unions, fraternal or athletic groups, or [...] Date Recorded Patient Health Questionnaire-2 Score 0 04/22/2024 [facility] of Occupat ional Health - Occupational Stress [...] place to sleep or slept in a half-way (including now)? No 03/30/2023 Comments No Sex and Gender Information Value Date Recorded Sex Assigned at Female 11/28/2024 2:57 PM CHAPERON Legal Sex Female 2:49 PM CDT Gender [...] Taylor, RN Active * Do you have difficulty [...] 3:44 PM AGT Enrique Taylor, RN Active documented as of this encounter Mental Status * Because of a physical, mental, or emotional condition, do you have serious difficulty concentrating, remembering, or making decisions? Answer Entry Date Author Status No 03/30/2023 3:44 PM AGT Enrique Taylor, RN Active documented in this encounter Plan of Treatment Upcoming Encounters Date Type Department Care Team (Late st Contact Info) Description 10/22/2025 1:00 PM CHAPERON Office Visit [facility] - [address] [address] Yves Giles MD 3 [facility] [address] [place] [address] 10/27/2025 12:15 PM CHAPERON Office Visit [facility] [address] Ovidio Valverde MD Three [facility] [address] [place] [address] 11/17/2025 1:40 PM CHAPERON Office Visit [facility] Medical Group Family & Internal Medicine - [place] [address] [place] [address] Yves Harris, [facility] [place] [address] 11/24/2025 11:00 AM CHAPERON Appointment [facility] [place] [address] Tadeo Frost MD Three [facility]. [facility] [address] [place] [address] 01/13/2026 11:00 AM CHAPERON Appointment [facility] [place] [place] [address] Tadeo Frost MD Three [facility]. [facility] [address] [place] [address] 07/31/2026 1:30 PM CDT [place]ment [place] [address] Roberto Mariscal MD 3 [facility] [address] [place] [address] 08/13/2026 11:45 AM CDT Office Visit [facility] THREE [facility], [facility] [address] [place] [address] Roberto Mariscal MD 3 [facility] [address] [place] [address] documented as of this encounter Visit Diagnoses Not on filedocumented in this encounter Additional Health Concerns Infection Onset Date Last Indicated Resolved Time COVID-19 Rule Out 01/22/2025 01/22/2025 01/22/2025 5:18 AM CDT Assessment Noted Time PHQ-9 Depression Total Score: 0 09/29/20 21 1:51 PM CHAPERON documented as of this encounter Care Teams Field Administrative Assistant Relationship Specialty Start Date End Date Yves Harris DO [address] [place] [address] PCP - General FAMILY PRACTICE 09/04/24 Ovidio Valverde MD [facility] [address] [place] [address] Physician CARDIOVASCULAR DISEASE 09/30/21 Tadeo Frost MD Three [facility]. [address] [place] [address] Referring Physician VASCULAR SURGERY 09/30/21 documented as of this encounter
--- OUTSIDE RECORDS SUMMARY | 2025-08-18 15:55 | XMS_ITS | Encounter Summary ---
Author Organization [facility] Address [address] [place] [address] Care Team Providers Care Clinical Material Handler Name Role Phone Jackson Morales MD Unavailable [phone] Ovidio Valverde MD Unavailable [phone] Tadeo Frost MD Unavailable Amee Montoya RN Unavailable [phone] Jackson Morales MD Primary Care Provider [phone] Jose Zepeda MD Primary Care Provider [phone] Yves Harris DO Primary Care Provider + Encounter Details Date Type Department Care Team (Late st Contact Info) Description 12/29/2022 Azimo Message Enc [facility] THREE [facility], [address] [place] [address] Tadeo Frost MD Three [facility]. [address] [place] [address] us art results Social History Tobacco Use Types Packs/Day Years Used Date Smoking Tobacco: Every Day Cigarettes 1 46 Smokeless Tobacco: Never Comments:02-18-2022 currently smokes 1/2 PPD ; counseled by dr Zepeda Alcohol Use Standard Drinks/Week Comments Yes 0 (1 standard drink = 0.6 oz pure alcohol) rarely (1-2 times /year) has a glass of wine PHQ-2 Answer Date Recorded Patient Health Questionnaire-2 Score 0 12/23/2022 Comments No Sex and Gender Information Value Date Recorded Sex Assigned at Female 11/28/2024 2:57 PM DAIRY GRAZER Legal Sex Female 2:49 PM CDT Gender Identity Female 03/05/2025 2:26 PM CDT Sexual Orientation Not on file COVID-19 Exposure Response Date Recorded In the last 10 days, have yo u been in contact with someone who was confirmed or suspected to have Coronavirus/COVID-19? No / Unsure 12/27/2022 12:48 PM DAIRY GRAZER documented as of this encounter Progress Notes * Zohra Sanford RN - 12/29/2022 4:16 PM CST . Y GRAZER documented in this encounter Plan of Treatment Upcoming Encounters Date Type Department Care Team (Late st Contact Info) Description 10/22/2025 1:00 PM DAIRY GRAZER Office Visit [facility] Pulmonology Specialty Clinic - [address] [address] Yves Giles MD 3 [facility] [address] [place] [address] 10/27/2025 12:15 PM DAIRY GRAZER Office Visit [facility] [address] [place] [address] [place] [address] Ovidio Valverde MD Three [facility] [address] [place] [address] 11/17/2025 1:40 PM DAIRY GRAZER Office Visit [facility] Medical Group Family & Internal Medicine - [place] [address] [place] [address] Yves Harris DO [address] [place] [address] 11/24/2025 11:00 AM DAIRY GRAZER Appointment [facility] [address] Tadeo Frost MD Three [facility]. [facility] [address] [place] [address] 01/13/2026 11:00 AM DAIRY GRAZER Appointment [facility] [address] Tadeo Frost MD Three [facility]. [facility] [address] [place] [address] 07/31/2026 1:30 PM CDT [place] [address] Roberto Mariscal MD 3 [facility] [address] [place] [address] 08/13/2026 11:45 AM CDT Office Visit [facility] THREE [facility], [facility] [address] [place] [address] Roberto Mariscal MD 3 [facility] [address] [place] [address] documented as of this encounter Visit Diagnoses Not on filedocumented in this encounter Additional Health Concerns Infection Onset Date Last Indicated Resolved Time COVID-19 Rule Out 01/22/2025 01/22/2025 01/22/2025 5:18 AM CDT Assessment Noted Time PHQ-9 Depression Total Score: 0 09/29/20 1:51 PM DAIRY GRAZER documented as of this encounter Care Teams Clinical Material Handler Relationship Specialty Start Date End Date [place] [address] PCP - General FAMILY MEDICINE SPORTS MEDICINE 06/13/24 07/21/24 Jose Zepeda MD [address] [address] PCP - General INTERNAL MEDICINE 07/22/24 09/03/24 Yves Harris DO [address] [place] [address] PCP - General FAMILY PRACTICE 09/04/24 Jackson Morales MD FAMILY MEDICINE SPORTS MEDICINE 09/30/21 07/07/24 Ovidio Valverde MD [facility], [address] [place] [address] Physician CARDIOVASCULAR DISEASE 09/30/21 Tadeo Frost MD [facility] [address] [place] [address] Referring Physician VASCULAR SURGERY 09/30/21 Amee Montoya, RN [address] [place] [address] Dietary Assistant (Ambulatory) REGISTERED NURSE 03/31/23 04/13/23 documented as of this encounter
--- OUTSIDE RECORDS SUMMARY | 2025-08-18 15:55 | XMS_ITS | Encounter Summary ---
Author Organization [facility] Address [address] [place] [address] Care Team Providers Care Medical Charge Entry Specialist Name Role Phone Ovidio Valverde MD Unavailable [phone] Tadeo Frost MD Unavailable Yves Harris DO Primary Care Provider + Encounter Details Date Type Department Care Team (Late st Contact Info) Description 05/29/2025 BigTwist Message [facility] Outreach [facility]-[address] [address] Ara Dickerson, ANP-[facility] [address] [place] [address] Test Results Social History Tobacco Use Types Packs/Day Years Used Date Smoking Tobacco: Some Days Cigarettes Last attempted to quit: 03/05/1968 Smokeless Tobacco: Never Comments:Provider to hughes Alcohol Use Standard Drinks/Week Comments Not Currently [...] How often do you attend chur or catholic services? More than 4 times per year 03/30/2023 Do you belong to any clubs o r organizations such as jain groups, unions, fraternal or athletic groups, or [...] Recorded Patient Health Questionnaire-2 Score 0 03/05/2025 [facility] of Occupat ional Health - Occupational Stress [...] place to sleep or slept in a long term (including now)? No 03/30/2023 Comments No Sex and Gender Information Value Date Recorded Sex Assigned at Female 11/28/2024 2:57 PM NURSES' REGISTRY DIRECTOR Legal Sex Female 2:49 PM CDT Gender [...] Status No 03/30/2023 3:44 PM CDT Enrique Taylor RN Active * Do you have difficulty dressing or bathing? Answer Date of Assessment Author Status No 03/30/2023 3:44 PM CDT Enrique Taylor, RN Active * Because of a physical, mental, or emotional condition, do you have difficulty doing errands alone such as visiting a doctor's office or shopping? Answer Date of Assessment Author Status No 03/30/2023 3:44 PM CDT Enrique Taylor, RN Active documented as of this encounter Mental Status * Because of a physical, mental, or emotional condition, do you have serious difficulty concentrating, remembering, or making decisions? Answer Entry Date Author Status No 03/30/2023 3:44 PM CDT Enrique Taylor, RN Active documented in this encounter Plan of Treatment Upcoming Encounters Date Type Department Care Team (Late st Contact Info) Description 10/22/2025 1:00 PM NURSES' REGISTRY DIRECTOR Office Visit [facility] Pulmonology Specialty Clinic - [address] [facility] [address] [place] [address] Yves Giles MD 3 [facility] [address] [place] [address] 10/27/2025 12:15 PM NURSES' REGISTRY DIRECTOR Office Visit [facility] [address] [place] [address] Ovidio Valverde MD Three [facility] [address] [place] [address] 11/17/2025 1:40 PM NURSES' REGISTRY DIRECTOR Office Visit [facility] Family & Internal Medicine - [place] [address] [place] [address] Yves Harris, [address] [place] [address] 11/24/2025 11:00 AM NURSES' REGISTRY DIRECTOR Appointment [facility] [place] [address] Tadeo Frost MD Three [facility]. [address] [place] [address] 01/13/2026 11:00 AM NURSES' REGISTRY DIRECTOR Appointment [facility] [place] [address] Tadeo Frost MD Three [facility]. [address] [place] [address] 07/31/2026 1:30 PM CDT [facility] [place] [address] Roberto Mariscal MD 3 [facility] [address] [place] [address] 08/13/2026 11:45 AM CDT Office Visit [facility] THREE [facility], [address] [place] [address] Roberto Mariscal MD 3 [facility] [address] [place] [address] documented as of this encounter Visit Diagnoses Not on filedocumented in this encounter Additional Health Concerns Assessment Noted Time PHQ-9 Depression Total Score: 0 09/29/20 1:51 PM NURSES' REGISTRY DIRECTOR documented as of this encounter Care Teams Medical Charge Entry Specialist Relationship Specialty Start Date End Date Yves Harris DO [address] [place] [address] PCP - General FAMILY PRACTICE 09/04/24 Ovidio Valverde MD Three [facility] [address] [place] [address] Physician CARDIOVASCULAR DISEASE 09/30/21 Tadeo Frost MD [facility]. [address] [address] Referring Physician VASCULAR SURGERY 09/30/21 documented as of this encounter
--- OUTSIDE RECORDS SUMMARY | 2025-08-18 15:55 | XMS_ITS | Encounter Summary ---
Author Organization [facility] Address [address] [place] [address] Care Team Providers Care B2B Sales Consultant Name Role Phone Jackson Morales MD Unavailable [phone] Ovidio Valverde MD Unavailable [phone] Tadeo Frost MD Unavailable Jackson Morales MD Primary Care Provider [phone] Jose Zepeda MD Primary Care Provider [phone] Yves Harris DO Primary Care Provider + Encounter Details Date Type Department Care Team (Late st Contact Info) Description 06/10/2024 MyChart Message [facility] Multispecialty Care - [place] [address] [address] [place] [address] Jose Zepeda MD [address] [place] [address] 157 [place] [address] appointment Social History Tobacco Use Types Packs/Day Years Used Date Smoking Tobacco: Every Day Cigarettes 0.5 46 Smokeless Tobacco: Never Comments:08/04/23 between 1/2 to 1 ppd; counseled by Dr. Zpeeda. Alcohol Use Standard Drinks/Week Comments Yes 0 [...] week 03/30/2023 How often do you attend [facility] or christian services? More than 4 times per year 03/30/2023 Do you belong to any clubs o r organizations such as latter day groups, unions, fraternal or athletic groups, or [...] Recorded Patient Health Questionnaire-2 Score 0 04/22/2024 [facility] of Occupat ional Health - Occupational [...] place to sleep or slept in a fpc (including now)? No 03/30/2023 Comments No Sex and Gender Information Value Date Recorded Sex Assigned at Female 11/28/2024 2:57 PM TRANSMISSION SUPERINTENDENT Legal Sex Female 2:49 PM CDT Gender [...] 3:44 PM CDT Enrique Taylor RN Active documented as of this encounter Mental Status * Because of a physical, mental, or emotional condition, do you have serious difficulty concentrating, remembering, or making decisions? Answer Entry Date Author Status No 03/30/2023 3:44 PM AGT Enrique Taylor RN Active documented in this encounter Plan of Treatment Upcoming Encounters Date Type Department Care Team (Late st Contact Info) Description 10/22/2025 1:00 PM TRANSMISSION SUPERINTENDENT Office Visit [facility] Pulmonology Specialty Clinic - [address] [address] Yves Giles MD 3 [facility] [address] [place] [address] 10/27/2025 12:15 PM TRANSMISSION SUPERINTENDENT Office Visit [facility] [address] [place] [address] Ovidio Valverde MD Three [facility] [address] [place] [address] 11/17/2025 1:40 PM TRANSMISSION SUPERINTENDENT Office Visit [facility] Family & Internal Medicine - [address] [address] Yves Harris DO [address] [place] [address] 11/24/2025 11:00 AM TRANSMISSION SUPERINTENDENT Appointment [facility] [place] [address] Tadeo Frost MD Three [facility]. [address] [address] 01/13/2026 11:00 AM TRANSMISSION SUPERINTENDENT Appointment [facility] [place] [address] Tadeo Frost MD Three [facility]. [facility] [address] [place] [address] 07/31/2026 1:30 PM CDT [place] [address] Roberto Mariscal MD 3 [facility] [address] [place] [address] 08/13/2026 11:45 AM CDT Office [facility] THREE [facility], [facility] [address] [place] [address] Roberto Mariscal MD [address] [address] documented as of this encounter Visit Diagnoses Not on filedocumented in this encounter Additional Health Concerns Infection Onset Date Last Indicated Resolved Time COVID-19 Rule Out 01/22/2025 01/22/2025 01/22/2025 5:18 AM CDT Assessment Noted Time PHQ-9 Depression Total Score: 0 09/29/20 21 1:51 PM TRANSMISSION SUPERINTENDENT documented as of this encounter Care Teams B2B Sales Consultant Relationship Specialty Start Date End Date Jackson [place] [address] PCP - General FAMILY MEDICINE SPORTS MEDICINE 06/13/24 07/21/24 Jose Zepeda MD [address] [address] PCP - General INTERNAL MEDICINE 07/22/24 09/03/24 Yves Harris DO [address] [place] [address] PCP - General FAMILY PRACTICE 09/04/24 Jackson Morales MD FAMILY MEDICINE SPORTS MEDICINE 09/30/21 07/07/24 Ovidio Valverde MD [facility], [address] [place] [id number] Physician CARDIOVASCULAR DISEASE 09/30/21 Tadeo Frost MD [facility] [address] [place] [address] Referring Physician VASCULAR SURGERY 09/30/21 documented as of this encounter
--- OUTSIDE RECORDS SUMMARY | 2025-08-18 15:55 | XMS_ITS | Encounter Summary ---
Author Organization [facility] Address [address] [place] [address] Care Team Providers Care Room Service Associate Name Role Phone Jackson Morales MD Unavailable [phone] Ovidio Valverde MD Unavailable [phone] Tadeo Frost MD Unavailable Amee Montoya RN Unavailable [phone] Jackson Morales MD Primary Care Provider [phone] Jose Zepeda MD Primary Care Provider [phone] Yves Harris DO Primary Care Provider + Encounter Details Date Type Department Care Team (Latest Contact Info) Description 02/01/2023 Impact Radiust Message Enc [facility] Multispecialty Care - [place] [address] [address] [place] [address] Jose Zepeda MD 1188 [facility] [address] [place], [place] [phone] next due date for colonoscopy Social History Tobacco Use Types Packs/Day Years [...] Sex Assigned at Female 11/28/2024 2:[address] LIGHT SERVICER SUPERVISOR Legal Sex Female 2:49 PM CDT Gender Identity Female 03/05/2025 2:26 PM CDT Sexual Orientation Not on file COVID-19 Exposure Response Date Recorded In the last 10 days, have yo u been in contact with someone who was confirmed or suspected to have Coronavirus/COVID-19? No / Unsure 02/01/2023 2:48 PM CDT documented as of this encounter Plan of Treatment Upcoming Encounters Date Type Department Care Team (Late st Contact Info) Description 10/22/2025 1:[address] LIGHT SERVICER SUPERVISOR Office Visit [facility] Pulmonology Specialty Clinic - [address] [facility] [address] [place] [address] Yves Giles MD 3 [facility] [address] [place] [address] 10/27/2025 12:[address] LIGHT SERVICER SUPERVISOR Office Visit [facility] [address] Ovidio Valverde MD [facility] [address] [place] [address] 11/17/2025 1:[address] LIGHT SERVICER SUPERVISOR Office Visit [facility] Family & Internal Medicine - [place] [address] [place] [address] Yves Harris DO [address] [place] [address] 11/24/2025 11:[address] LIGHT SERVICER SUPERVISOR Appointment [facility] [place] [address] Tadeo Frost MD Three [facility]. [facility] [address] [place] [address] 01/13/2026 11:[address] LIGHT SERVICER SUPERVISOR Appointment [facility] [place] [address] Tadeo Frost MD Three [facility]. [facility] [address] [place] [address] 07/31/2026 1:30 PM CDT [place] [address] Roberto Mariscal MD 3 [facility] [address] [place] [address] 08/13/2026 11:45 AM CDT Office Visit [facility] THREE [facility], [facility] [address] [place] [address] Roberto Mariscal MD 3 [facility] [address] [place] [address] documented as of this encounter Visit Diagnoses Not on filedocumented in this encounter Additional Health Concerns Infection Onset Date Last Indicated Resolved Time COVID-19 Rule Out 01/22/2025 01/22/2025 01/22/2025 5:18 AM CDT Assessment Noted Time PHQ-9 Depression Total Score: 0 09/29/20 21 1:[address] LIGHT SERVICER SUPERVISOR documented as of this encounter Care Teams Room Service Associate Relationship Specialty Start Date End Date [place] [address] PCP - General FAMILY MEDICINE SPORTS MEDICINE 06/13/24 07/21/24 Jose Zepeda MD 1188 [facility] [address] [place] [address] PCP - General INTERNAL MEDICINE 07/22/24 09/03/24 Yves Harris DO [address] [place] [address] PCP - General FAMILY PRACTICE 09/04/24 Jackson Morales MD FAMILY MEDICINE SPORTS MEDICINE 09/30/21 07/07/24 Ovidio Valverde MD [facility], [address] [place] [phone] Physician CARDIOVASCULAR DISEASE 09/30/21 Tadeo Frost MD [facility] [address] [place] [address] [phone] Referring Physician VASCULAR SURGERY 09/30/21 Amee Montoya, RN [address] [place], [place] [phone] Marzipan Molder (Ambulatory) REGISTERED NURSE 03/31/23 04/13/23 documented as of this encounter
--- OUTSIDE RECORDS SUMMARY | 2025-08-18 15:55 | XMS_ITS | Encounter Summary ---
Author Organization [facility] Address [address] [place] [address] Care Team Providers Care Electric Arc Welder Name Role Phone Ovidio Valverde MD Unavailable [phone] Tadeo Frost MD Unavailable Yves Harris DO Primary Care Provider + Encounter Details Date Type Department Care Team (Latest Contact Info) Description 06/25/2025 Results Follow-Up [facility] Medical Group Multispecialty Care - [facility] 3 [facility] [address] [place] [phone] Yves Giles MD 3 [facility] [address] [place] [address] CT CHEST HIGH RESOLUTION WO CON Social History Tobacco Use Types Packs/Day Years Used Date Smoking Tobacco: Some Days Cigarettes Last attempted to quit: 03/05/1968 Smokeless Tobacco: Never Comments:Provider to augustine Alcohol Use Standard Drinks/Week Comments Not Currently [...] How often do you attend chur or restorationist services? More than 4 times per year 03/30/2023 Do you belong to any clubs o r organizations such as oriental orthodox groups, unions, fraternal or athletic groups, or [...] Recorded Patient Health Questionnaire-2 Score 0 03/05/2025 [facility] of Occupat ional Health - Occupational [...] Sex Assigned at Female 11/28/2024 2:57 PM DRIVER RETRAINING INSTRUCTOR Legal Sex Female 2:49 PM CDT Gender [...] Assessment Author Status No 03/30/2023 3:44 PM CDEnrique Shelby, RN Active * Do you have difficulty dressing or bathing? Answer Date of Assessment Author Status No 03/30/2023 3:44 PM Enrique Conner, RN Active * Because of a physical, [...] 3:44 PM Enrique Conner RN Active documented in this encounter Plan of Treatment Upcoming Encounters Date Type Department Care Team (Late st Contact Info) Description 10/22/2025 1:00 PM DRIVER RETRAINING INSTRUCTOR Office Visit [facility] Pulmonology Specialty Clinic - [address] [address] Yves Giles MD 3 [facility] [address] [place] [address] 10/27/2025 12:15 PM DRIVER RETRAINING INSTRUCTOR Office Visit [facility] [address] [facility] [address] [place] [address] Ovidio Valverde MD Three [facility] [address] [place] [address] 11/17/2025 1:40 PM DRIVER RETRAINING INSTRUCTOR Office Visit [facility] Medical Group Family & Internal Medicine - [place] [address] [place] [address] Yves Harris DO [address] [place] [address] 11/24/2025 11:00 AM DRIVER RETRAINING INSTRUCTOR Appointment [facility] [place] [address] Tadeo Frost MD Three [facility]. [address] [place] [address] 01/13/2026 11:00 AM DRIVER RETRAINING INSTRUCTOR Appointment [facility] [place] [address] Tadeo Frost MD Three [facility]. [address] [place] [address] 07/31/2026 1:30 PM CDT [place]ment [place] [address] Roberto Mariscal MD 3 [facility] [address] [place] [address] 08/13/2026 11:45 AM CDT Office Visit [facility] [address] [facility], [facility] [address] [place] [address] Roberto Mariscal MD 3 [facility] [address] [place] [address] documented as of this encounter Visit Diagnoses Not on filedocumented in this encounter Additional Health Concerns Assessment Noted Time PHQ-9 Depression Total Score: 0 09/29/20 21 1:51 PM DRIVER RETRAINING INSTRUCTOR documented as of this encounter Care Teams Electric Arc Welder Relationship Specialty Start Date End Date Yves Harris DO [address] [place] [address] PCP - General FAMILY PRACTICE 09/04/24 Ovidio Valverde MD Three [facility] [address] [place] [address] Physician CARDIOVASCULAR DISEASE 09/30/21 Tadeo Frost MD [address] [address] Referring Physician VASCULAR SURGERY 09/30/21 documented as of this encounter
--- OUTSIDE RECORDS SUMMARY | 2025-08-18 15:55 | XMS_ITS | Encounter Summary ---
Author Organization [facility] Address [address] [place] [address] Care Team Providers Care Environmental Department Manager Name Role Phone Jackson Morales MD Unavailable [phone] Ovidio Valverde MD Unavailable [phone] Tadeo Frost MD Unavailable Jackson Morales MD Primary Care Provider [phone] Jose Zepeda MD Primary Care Provider [phone] Yves Harris DO Primary Care Provider + Encounter Details Date Type Department Care Team (Late st Contact Info) Description 05/18/2023 ShareSquare Message Enc [facility] Multispecialty Care - [address] [place], [place] [phone] [facility] Provider Results Social History Tobacco Use Types Packs/Day [...] often do you attend chur ch or anabaptist services? More than 4 times per year 03/30/2023 Do you belong to any clubs o r organizations such as sabianism groups, unions, fraternal or athletic groups, or [...] Recorded Patient Health Questionnaire-2 Score 0 12/23/2022 [facility] [place] of Occupat ional Health - Occupational Stress [...] place to sleep or slept in a correction (including now)? No 03/30/2023 Comments No Sex and Gender Information Value Date Recorded Sex Assigned at Female 11/28/2024 2:57 PM EMBOSSING MACHINE OPERATOR Legal Sex Female 2:49 PM CDT Gender Identity Female 03/05/2025 2:26 PM CDT Sexual Orientation Not on file documented as of this encounter Functional Status * Are you deaf or do you have serious difficulty hearing Answer Date of Assessment Author Status No 03/30/2023 3:44 PM CDT Enrique Taylor RN Active * Are you blind or do you have serious difficulty seeing, even when wearing glasses? Answer Date of Assessment Author Status No 03/30/2023 3:44 PM CDT Enrique Taylor RN Active * Do you have serious [...] st Contact Info) Description 10/22/2025 1:00 PM EMBOSSING MACHINE OPERATOR Office Visit [facility] Medical [facility] Pulmonology Specialty Clinic - [address] [address] Yves Giles MD 3 [facility] [address] [place] [address] 10/27/2025 12:15 PM EMBOSSING MACHINE OPERATOR Office Visit [facility] [address] [address] Ovidio Valverde MD Three [facility] [address] [place] [address] 11/17/2025 1:40 PM EMBOSSING MACHINE OPERATOR Office Visit [facility] Family & Internal Medicine - [place] [address] [place] [address] Yves Harris DO [address] [place] [address] 11/24/2025 11:00 AM EMBOSSING MACHINE OPERATOR Appointment [facility] [place] [address] Tadeo Frost MD Three [facility]. [address] [address] 01/13/2026 11:00 AM EMBOSSING MACHINE OPERATOR Appointment [facility] [place] [address] Tadeo Frost MD Three [facility]. [place] [address] [place] [address] 07/31/2026 1:[address] [place] [address] Roberto Mariscal MD 3 [facility] [address] [place] [address] 08/13/2026 11:45 AM CDT Office Visit [facility] THREE [facility] [address] [place] [address] Roberto Mariscal MD [address] [address] documented as of this encounter Visit Diagnoses Not on filedocumented in this encounter Additional Health Concerns Infection Onset Date Last Indicated Resolved Time COVID-19 Rule Out 01/22/2025 01/22/2025 01/22/2025 5:18 AM CDT Assessment Noted Time PHQ-9 Depression Total Score: 0 09/29/20 21 1:51 PM EMBOSSING MACHINE OPERATOR documented as of this encounter Care Teams Environmental Department Manager Relationship Specialty Start Date End Date Jackson Morales [place] [address] PCP - General FAMILY MEDICINE SPORTS MEDICINE 06/13/24 07/21/24 Jose Zepeda MD [address] [address] PCP - General INTERNAL MEDICINE 07/22/24 09/03/24 Yves Harris DO [address] [place] [address] PCP - General FAMILY PRACTICE 09/04/24 Jackson Morales MD FAMILY MEDICINE SPORTS MEDICINE 09/30/21 07/07/24 Ovidio Valverde MD Three [facility], [address] [place] [phone] Physician CARDIOVASCULAR DISEASE 09/30/21 Tadeo Frost MD Three [facility] [address] [place] [phone] Referring Physician VASCULAR SURGERY 09/30/21 documented as of this encounter
--- OUTSIDE RECORDS SUMMARY | 2025-08-18 15:55 | XMS_ITS | Encounter Summary ---
Author Organization [facility] Address [address] [place] [address] Care Team Providers Care Chartered Accountant Name Role Phone Jackson Morales MD Unavailable [phone] Ovidio Valverde MD Unavailable [phone] Tadeo Frost MD Unavailable Amee Montoya RN Unavailable [phone] Jackson Morales MD Primary Care Provider [phone] Jose Zepeda MD Primary Care Provider [phone] Yves Harris DO Primary Care Provider + Encounter Details Date Type Department Care Team (Late st Contact Info) Description 05/21/2022 MyChart Message Enc [facility] Multispecialty Care - [place] [address] [address] [place] [address] [place] [address] [place] [address] 157 [place], [place] [id number] Vaccinations Social History Tobacco Use Types Packs/Day Years Used Date Smoking Tobacco: Every Day Cigarettes 1.5 46 Smokeless Tobacco: Never Comments:02-18-2022 currently smokes 1/2 PPD Alcohol Use Standard Drinks/Week Comments Yes 0 (1 standard drink = 0.6 oz pure alcohol) rarely (1-2 times /year) has a glass of wine PHQ-2 Answer Date Recorded PHQ-2 Score - If the patient scores above 3, please move on to questions 3-9 0 09/29/2021 Comments No Sex and Gender Information Value Date Recorded Sex Assigned at Female 11/28/2024 2:57 PM REAL ESTATE DEVELOPMENT MANAGER Legal Sex Female 2:49 PM CDT Gender Identity Female 03/05/2025 2:26 PM CDT Sexual Orientation Not on file COVID-19 Exposure Response Date Recorded In the last 10 days, have yo u been in contact with someone who was confirmed or suspected to have Coronavirus/COVID-19? No / Unsure 05/10/2022 11:09 AM CDT documented as of this encounter Plan of Treatment Upcoming Encounters Date Type Department Care Team (Late st Contact Info) Description 10/22/2025 1:00 PM REAL ESTATE DEVELOPMENT MANAGER Office Visit [facility] - [address] [address] Yves Giles MD 3 [facility] [address] [place] [address] 10/27/2025 12:15 PM REAL ESTATE DEVELOPMENT MANAGER Office Visit [facility] [address] Ovidio Valverde MD Three [facility] [address] [place] [address] 11/17/2025 1:40 PM REAL ESTATE DEVELOPMENT MANAGER Office Visit [facility] Family & Internal Medicine - [place] [address] [place] [phone] Yves Harris DO [address] [place] [address] 11/24/2025 11:00 AM REAL ESTATE DEVELOPMENT MANAGER Appointment [facility] [place] [address] Tadeo Frost MD Three [facility]. [facility] [address] [place] [address] 01/13/2026 11:00 AM REAL ESTATE DEVELOPMENT MANAGER Appointment [facility] [place] [address] Tadeo Frost MD Three [facility]. [facility] [address] [place] [address] 07/31/2026 1:30 PM CDT [place] [address] Roberto Mariscal MD 3 [facility] [address] [place] [address] 08/13/2026 11:45 AM CDT Office Visit [facility] [place] THREE [facility], [facility] [address] [place] [address] Roberto Mariscal MD 3 [facility] [address] [place] [address] documented as of this encounter Visit Diagnoses Not on filedocumented in this encounter Additional Health Concerns Infection Onset Date Last Indicated Resolved Time COVID-19 Rule Out 01/22/2025 01/22/2025 01/22/2025 5:18 AM CDT Assessment Noted Time PHQ-9 Depression Total Score: 0 09/29/20 21 1:51 PM REAL ESTATE DEVELOPMENT MANAGER documented as of this encounter Care Teams Chartered Accountant Relationship Specialty Start Date End [place] [address] PCP - General FAMILY MEDICINE SPORTS MEDICINE 06/13/24 07/21/24 Jose Zepeda MD [address] [address] PCP - General INTERNAL MEDICINE 07/22/24 09/03/24 Yves Harris DO [address] [place] [address] PCP - General FAMILY PRACTICE 09/04/24 Jackson Morales MD FAMILY MEDICINE SPORTS MEDICINE 09/30/21 07/07/24 Ovidio Valverde MD [facility], [address] [place], [place] [phone] Physician CARDIOVASCULAR DISEASE 09/30/21 Tadeo Frost MD [facility] [address] [place], [place] [id number] Referring Physician VASCULAR SURGERY 09/30/21 Amee Montoya, RN [address] [place], [place] [phone] Loom Checker (Ambulatory) REGISTERED NURSE 03/31/23 04/13/23 documented as of this encounter
[2025-08-18] MEDS: LIDOCAINE 5% PATCH 1 PATCH TRANSDERM (19:56)
[2025-08-18] MEDS: diazePAM INJ (*CRX) 10 MG/2 ML SYRINGE 5 MG IV PUSH (19:57)
[2025-08-18 20:03] LABS: Hematocrit 37.3 % (37.0-47.0); Hemoglobin 12.0 g/dL (12.0-15.0); Immature Granulocyte Percent A 0.3 % (0-0.5); Lymphocytes Absolute Auto 1.85 K/mm3 (0.9-3.2); Mean Corpuscular HGB Conc 32.2 g/dl (32-36); Mean Corpuscular Hemoglobin 32.4 pg (26-34); Mean Corpuscular Volume 100.8 fl (80-100); Nucleated Red Blood Cells Absolute Auto 0.000 K/mm3 (0.0-0.012); Nucleated Red Blood Cells Perc 0.0 % (0.0-0.2); Platelet Count Result 248 k/mm3 (150-375); Red Blood Count 3.70 M/mm3 (4.2-5.4); White Blood Count 7.7 K/mm3 (4.5-10.0)
[2025-08-18 20:14] LABS: INR 0.9; Prothrombin Time 12.1 Seconds (11.1-14.7)
[2025-08-18 20:15] LABS: Alanine Aminotransferase 21 U/L (6-35); Albumin Level 4.4 g/dL (3.5-5.1); Alkaline Phosphatase 53 U/L (38-126); Anion Gap 8 mmol/L (4-12); Aspartate Amino Transferase 27 U/L (14-36); Bilirubin,Total 0.4 mg/dL (0.2-1.3); Blood Urea Nitrogen 17 mg/dL (7-17); Calcium 9.1 mg/dL (8.4-10.2); Carbon Dioxide 24 mmol/L (22-30); Chloride 106 mmol/L (98-107); Estimated CRCL calculation 36 ml/min; Estimated Glomerular Filt Rate 58; Glucose 130 mg/dL (65-110); Partial Thromboplastin Time 27.3 Seconds (22.3-36.8); Potassium 3.7 mmol/L (3.4-5.0); Sodium 138 mmol/L (137-145); Total Protein 7.5 g/dL (6.3-8.2)
--- OUTSIDE RECORDS SUMMARY | 2025-08-18 21:23 | XMS_ITS | Encounter Summary ---
Author Organization [facility] Address [address] [place] [address] Care Team Providers Care Truck Dispatcher Name Role Phone Jackson Morales MD Unavailable [phone] Ovidio Valverde MD Unavailable [phone] Tadeo Frost MD Unavailable Amee Montoya RN Unavailable [phone] Jackson Morales MD Primary Care Provider [phone] Jose Zepeda MD Primary Care Provider [phone] Yves Harris DO Primary Care Provider + Encounter Details Date Type Department Care Team (Late st Contact Info) Description 12/29/2022 [place]eritas Message Enc [facility] THREE [facility], [address] [place] [address] Tadeo Frost MD Three [facility]. [address] [place] [address] us art results Social History [...] Sex Assigned at Female 11/28/2024 2:57 PM MICROPHONE OPERATOR Legal Sex Female 2:49 PM CDT Gender Identity Female 03/05/2025 2:26 PM CDT Sexual Orientation Not on file COVID-19 Exposure Response Date Recorded In the last 10 days, have yo u been in contact with someone who was confirmed or suspected to have Coronavirus/COVID-19? No / Unsure 12/27/2022 12:48 PM MICROPHONE OPERATOR documented as of this encounter Progress Notes * Zohra Sanford RN - 12/29/2022 4:16 PM CST . OPHONE OPERATOR documented in this encounter Plan of Treatment Upcoming Encounters Date Type Department Care Team (Late st Contact Info) Description 10/22/2025 1:00 PM MICROPHONE OPERATOR Office Visit [facility] Pulmonology Specialty Clinic - [address] [address] Yves Giles MD 3 [facility] [address] [place] [address] 10/27/2025 12:15 PM MICROPHONE OPERATOR Office Visit [facility] [address] [place] [address] [place] [address] Ovidio Valverde MD Three [facility] [address] [place] [address] 11/17/2025 1:40 PM MICROPHONE OPERATOR Office Visit [facility] Family & Internal Medicine - [place] [address] [place] [address] Yves Harris DO [address] [place] [address] 11/24/2025 11:00 AM MICROPHONE OPERATOR Appointment [facility] [place] [address] Tadeo Frost MD [facility]. [facility] [address] [place] [address] 01/13/2026 11:00 AM MICROPHONE OPERATOR Appointment [facility] [place] [address] Tadeo Frost MD [facility]. [facility] [address] [place] [address] 07/31/2026 1:30 PM CDT [place] [address] Roberto Mariscal MD 3 [facility] [address] [place] [address] 08/13/2026 11:45 AM CDT Office Visit [facility] THREE [facility], [facility] [address] [place] [address] Roberto Mariscal MD 3 [facility] [address] [place] [address] documented as of this encounter Visit Diagnoses Not on filedocumented in this encounter Additional Health Concerns Infection Onset Date Last Indicated Resolved Time COVID-19 Rule Out 01/22/2025 01/22/2025 01/22/2025 5:18 AM CDT Assessment Noted Time PHQ-9 Depression Total Score: 0 09/29/20 1:51 PM MICROPHONE OPERATOR documented as of this encounter Care Teams Truck Dispatcher Relationship Specialty Start Date End Date [place] [address] PCP - General FAMILY MEDICINE SPORTS MEDICINE 06/13/24 07/21/24 Jose Zepeda MD [address] [address] PCP - General INTERNAL MEDICINE 07/22/24 09/03/24 Yves Harris DO [address] [place] [address] PCP - General FAMILY PRACTICE 09/04/24 Jackson Morales MD FAMILY MEDICINE SPORTS MEDICINE 09/30/21 07/07/24 Ovidio Valverde MD [facility], [address] [place] [address] Physician CARDIOVASCULAR DISEASE 09/30/21 Tadeo Frost MD [facility] [address] [place] [address] Referring Physician VASCULAR SURGERY 09/30/21 Amee Montoya, RN [address] [place] [address] Bench Worker Hollow Handle (Ambulatory) REGISTERED NURSE 03/31/23 04/13/23 documented as of this encounter
--- OUTSIDE RECORDS SUMMARY | 2025-08-18 21:23 | XMS_ITS | Clinical Summary ---
Author Organization [facility] [address] [facility] Address [address] [place] [phone] Care Team Providers Care Cycle Touring Guide Name Role Phone Unknown, Notinfile Primary Care [...] (3 mg total) by mouth early childhood educator aide before breakfast Active Anoro Ellipta 62.5-25 mcg/actuation blister with device INHALE 1 PUFF INTO THE LUNGS DAILY. RINSE AND SPIT AFTER USE Active Active Problems No known active problems Encounters Date Type Department Care Team Description 08/18/2025 2:30 PM CDT Office Visit [facility] Convenient Care at [address] [address] Veronica Ga NP Neck swelling (Primary Dx); Shortness of breath from Last 3 Months Social History Tobacco Use Types Packs/Day Years Used Date Smoking Tobacco: Never Assessed Comments Unknown Sex and Gender Information Value Date Recorded Sex Assigned at Not on file Legal Sex Female 8:22 PM CONSTRUCTION SUPERINTENDENT Gender Identity Not on file Sexual Orientation [...] 1106/2017 Insurance [place]ARE [place] Care Teams Cycle Touring Guide Relationship Specialty Start Date End Date Unknown, Notinfile PCP - General 08/18/25
--- OUTSIDE RECORDS SUMMARY | 2025-08-18 21:23 | XMS_ITS | Encounter Summary ---
Author Organization [facility] Address [address] [place] [address] Care Team Providers Care Needle Maker Name Role Phone Jackson Morales MD Unavailable [phone] Ovidio Valverde MD Unavailable [phone] Tadeo Frost MD Unavailable Amee Montoya RN Unavailable [phone] Jackson Morales MD Primary Care Provider [phone] Jose Zepeda MD Primary Care Provider [phone] Yves Harris DO Primary Care Provider + Encounter Details Date Type Department Care Team (Latest Contact Info) Description 09/10/2022 Andtixt Message Enc [facility] Multispecialty Care - [place] [address] [address] [place] [address] Jsoe Zepeda MD 1188 [facility] [address] [place] [address] Sertraline medication Social History Tobacco Use Types [...] Sex Assigned at Female 11/28/2024 2:57 PM MACHINE OPERATOR SLITTER TECHNICIAN Legal Sex Female 2:49 PM CDT Gender [...] st Contact Info) Description 10/22/2025 1:00 PM MACHINE OPERATOR SLITTER TECHNICIAN Office Visit [facility] Medical [facility] Pulmonology Specialty Clinic - [place] [address] [facility] [address] [place] [address] Yves Giles MD 3 [facility] [address] [place] [address] 10/27/2025 12:15 PM MACHINE OPERATOR SLITTER TECHNICIAN Office Visit [facility] [address] [facility] [address] [place] [address] Ovidio Valverde MD Three [facility] [address] [place] [address] 11/17/2025 1:40 PM MACHINE OPERATOR SLITTER TECHNICIAN Office Visit [facility] Family & Internal Medicine - [place] [address] [place] [address] Yves Harris DO [address] [place] [address] 11/24/2025 11:00 AM MACHINE OPERATOR SLITTER TECHNICIAN Appointment [facility] [place] [address] Tadeo Frost MD Three [facility]. [facility] [address] [place] [address] 01/13/2026 11:00 AM MACHINE OPERATOR SLITTER TECHNICIAN Appointment [facility] [address] Tadeo Frost MD Three [facility]. [facility] [address] [place] [address] 07/31/2026 1:30 PM CDT [place] [address] Roberto Mariscal MD 3 [facility] [address] [place] [address] 08/13/2026 11:45 AM CDT Office Visit [facility] THREE [facility], [facility] [address] [place] [address] Roberto Mariscal MD 3 [facility] [address] [place] [address] documented as of this encounter Visit Diagnoses Not on filedocumented in this encounter Additional Health Concerns Infection Onset Date Last Indicated Resolved Time COVID-19 Rule Out 01/22/2025 01/22/2025 01/22/2025 5:18 AM CDT Assessment Noted Time PHQ-9 Depression Total Score: 0 09/29/20 21 1:51 PM MACHINE OPERATOR SLITTER TECHNICIAN documented as of this encounter Care Teams Needle Maker Relationship Specialty Start Date End Date Jackson Morales [place] [address] PCP - General FAMILY MEDICINE SPORTS MEDICINE 06/13/24 07/21/24 Jose Zepeda MD 1188 [facility] [address] [place] [address] PCP - General INTERNAL MEDICINE 07/22/24 09/03/24 Yves Harris DO [address] [place] [address] PCP - General FAMILY PRACTICE 09/04/24 Jackson Morales MD FAMILY MEDICINE SPORTS MEDICINE 09/30/21 07/07/24 Ovidio Valverde MD [facility], [address] [place], [place] [phone] Physician CARDIOVASCULAR DISEASE 09/30/21 Tadeo Frost MD Three [facility] [address] [place], [place] [phone] Referring Physician VASCULAR SURGERY 09/30/21 Amee Montoya, RN [address] [place], [place] [address] Pullman Conductor (Ambulatory) REGISTERED NURSE 03/31/23 04/13/23 documented as of this encounter
--- OUTSIDE RECORDS SUMMARY | 2025-08-18 21:23 | XMS_ITS | Encounter Summary ---
Author Organization [facility] Address [address] [place] [address] Care Team Providers Care Car Mechanic Name Role Phone Jackson Morales MD Unavailable [phone] Ovidio Valverde MD Unavailable [phone] Tadeo Frost MD Unavailable Amee Montoya RN Unavailable [phone] Jackson Morales MD Primary Care Provider [phone] Jose Zepeda MD Primary Care Provider [phone] Yves Harris DO Primary Care Provider + Encounter Details Date Type Department Care Team (Latest Contact Info) Description 02/01/2023 Genmabt Message Enc [facility] Multispecialty Care - [place] [address] [address] [place] [address] Jose Zepeda MD 1188 [facility] 157 [place], [place] [phone] next due date for colonoscopy Social History [...] Sex Assigned at Female 11/28/2024 2:57 PM PET AMBASSADOR Legal Sex Female 2:49 PM CDT Gender [...] st Contact Info) Description 10/22/2025 1:00 PM PET AMBASSADOR Office Visit [facility] Pulmonology Specialty Clinic - [address] [facility] [address] [place] [address] Yves Giles MD 3 [facility] [address] [place] [address] 10/27/2025 12:15 PM PET AMBASSADOR Office Visit [facility] [address] Ovidio Valverde MD Three [facility] [address] [place] [address] 11/17/2025 1:40 PM PET AMBASSADOR Office Visit [facility] Family & Internal Medicine - [place] [address] [place] [address] Yves Harris DO [address] [place] [address] 11/24/2025 11:00 AM PET AMBASSADOR Appointment [facility] [place] [address] Tadeo Frost MD Three [facility]. [facility] [address] [place] [address] 01/13/2026 11:00 AM PET AMBASSADOR Appointment [facility] [place] [address] Tadeo Frost MD Three [facility]. [facility] [address] [place] [address] 07/31/2026 1:30 PM CDT App[place]ment [place] [address] Roberto Mariscal MD 3 [facility] [address] [place] [address] 08/13/2026 11:45 AM CDT Office Visit [facility] THREE [facility], [facility] [address] [place] [address] Roberto Mariscal MD 3 [facility] [address] [place] [address] documented as of this encounter Visit Diagnoses Not on filedocumented in this encounter Additional Health Concerns Infection Onset Date Last Indicated Resolved Time COVID-19 Rule Out 01/22/2025 01/22/2025 01/22/2025 5:18 AM CDT Assessment Noted Time PHQ-9 Depression Total Score: 0 09/29/20 21 1:51 PM PET AMBASSADOR documented as of this encounter Care Teams Car Mechanic Relationship Specialty Start Date End Date [place] [address] PCP - General FAMILY MEDICINE SPORTS MEDICINE 06/13/24 07/21/24 Jose Zepeda MD 1188 [facility] [address] [place] [address] PCP - General INTERNAL MEDICINE 07/22/24 09/03/24 Yves Harris DO [address] [place] [address] PCP - General FAMILY PRACTICE 09/04/24 Jackson Morales MD FAMILY MEDICINE SPORTS MEDICINE 09/30/21 07/07/24 Ovidio Valverde MD [facility], [address] [place] [phone] Physician CARDIOVASCULAR DISEASE 09/30/21 Tadeo Frost MD [facility] [address] [place] [phone] Referring Physician VASCULAR SURGERY 09/30/21 Amee Montoya, RN [address] [place], [place] [address] Segment Producer (Ambulatory) REGISTERED NURSE 03/31/23 04/13/23 documented as of this encounter
--- OUTSIDE RECORDS SUMMARY | 2025-08-18 21:23 | XMS_ITS | Clinical Summary ---
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, unspecified vessel or [...] Hypertensive heart disease w ith heart failure ([facility]) 04/22/2024 09/04/2024 Paroxysmal atrial fibrillati on ([facility]) 01/28/2023 05/12/2025 Encounters Date Type Department Care Team Description 08/13/2025 2:15 PM CDT Office Visit [facility], [address] [address] Tadeo Frost MD Follow Up 08/13/2025 Travel 07/31/2025 10:30 AM CDT Office Visit [facility], [address] [address] Roberto Mariscal MD Consult 07/31/2025 Travel 07/23/2025 Results Follow-Up [facility] Medical [facility] Pul[facility]ology Specialty Clinic - [place] [address] [place] [address] Denzel Hanson MD CTA CHEST 07/23/2025 MyChart Message Enc [facility] Medical [facility] - [place] [address] [place] [address] Denzel Hanson MD CTA scan done on July 15, 2025 07/15/2025 3:18 PM CDT - 07/15/2025 11:59 PM CDT Hospital Encounter [facility] [place] [address] Denzel Hanson MD Discharge Disposition: Home or Self Care (Routine Discharge) 07/15/2025 Travel 07/03/2025 Scan HEALTH INFO SRVCS Scanned, Doc Med Group CT (SCAN) 06/25/2025 Results [facility] [address] [facility] [place] [address] CHEST HIGH RESOLUTION WO CON 06/24/2025 MyChart Message Enc [facility]ology Specialty Clinic - [place] [address] [place] [address] Denzel Hanson MD C/T scan 06/18/2025 12:34 PM CDT - 06/18/2025 11:59 PM CDT Hospital Encounter [facility] [address] [place] [address] Denzel Hanson MD Discharge Disposition: Home or Self Care (Routine Discharge) 06/18/2025 Travel 06/02/2025 Telephone [facility] Emergency Department - [facility] [address] [facility] [place] [address] Denzel Hanson MD Results 06/02/2025 Results Follow-Up [facility]ology Specialty Clinic - [place] [address] [place] [address] Denzel Hanson MD Complete PFT (pre/post Josue, Lung Vol, Diff Capacity) (09664, 82419, 16568, 56553) 05/29/2025 MyChart Message Enc [facility] [address] Ara Dickerson, ANP-BC Test Results 05/28/2025 Results Follow-Up [facility] [address] [place] [address] Maggie Frias RN USE ECHOCARDIOGRAM 05/26/2025 12:30 PM CDT - 05/26/2025 11:59 PM CDT Hospital Encounter [facility] [place] [address] Ovidio Valverde MD Discharge Disposition: Home or Self Care (Routine Discharge) 05/26/2025 Travel 05/23/2025 9:49 AM CDT - 05/23/2025 11:59 PM CDT Hospital Encounter [facility] [place] [address] Denzel Hanson MD Discharge Disposition: Home or Self Care (Routine Discharge) 05/23/2025 Scan FiPath INFO SRVCS Scanned, Doc Med [facility] PFT [...] MCG/ 0.5 ML DOSE 02/05/2021,01/08/2021 MODERNA COVID-19 (CDL INSTRUCTOR GOPAL MONCHO), MRNA, LNP-S, PF, 50 MCG/ 0.25 ML DOSE 03/15/2022,10/11/2021 Pneumococcal (Pneumovax 23) 06/27/2020 Pneumococcal (Prevnar 13) 09/20/2017 Zoster (Zostavax) 21079 Unt/0.65Ml 01/19/2008 Family History Medical History Relation [...] uit: Yes; Counseling Given: Yes Comments:Provider to [place] Alcohol Use Standard Drinks/Week Comments Not Currently [...] often do you attend chur ch or orthodoxy services? More than 4 times per year 03/30/2023 Do you belong to any clubs o r organizations such as voodoo groups, unions, fraternal or athletic groups, or [...] Recorded Patient Health Questionnaire-2 Score 0 03/05/2025 [facility] of Occupat ional Health - Occupational Stress [...] place to sleep or slept in a group home (including now)? No 03/30/2023 Comments No Sex and Gender Information Value Date Recorded Sex Assigned at Female 11/28/2024 2:57 PM HOSPITAL RECEPTIONIST Legal Sex Female 2:49 PM CDT Gender [...] st Contact Info) Description 10/22/2025 1:00 PM HOSPITAL RECEPTIONIST Office Visit [facility] Medical [facility] Pul[facility]ology Specialty Clinic - [address] [facility] [address] [place] [address] Denzel Hanson MD [address] [facility] [address] [place] [address] 10/27/2025 12:15 PM HOSPITAL RECEPTIONIST Office Visit [facility] [address] [facility] [address] [place] [address] Ovidio Valverde MD Three [facility] [address] [place] [address] 11/17/2025 1:40 PM HOSPITAL RECEPTIONIST Office Visit [facility] Medical Group Family & Internal Medicine - [address] [address] Denzel Harris, DO [address] [place] [address] 11/24/2025 11:00 AM HOSPITAL RECEPTIONIST Appointment [facility] [address] Tadeo Frost MD Three [facility]. [facility] [address] [place] [address] 01/13/2026 11:00 AM HOSPITAL RECEPTIONIST Appointment [facility] [address] Tadeo Frost MD Three [facility]. [facility] [address] [place] [address] 07/31/2026 1:30 PM CDT [place]ment [place] [address] Roberto Mariscal MD 3 [facility] [address] [place] [address] 08/13/2026 11:45 AM CDT Office Visit [facility], [facility] [address] [place] [address] Roberto Mariscal MD 3 [facility] [address] [place] [address] Health Maintenance Due Date Last Done Comments [...] or 60+ Years Completed 11/08/2024 PHQ-2 (Physician [place]) Completed 03/05/2025 Meningococcal B Vaccine Aged Out [...] Chronic obstructive pulmonary disease, unspecified COPD type ([facility]) USE ECHOCARDIOGRAM Routine 05/26/2025 1: 14 PM CDT Moderate tricuspid regurgitation SIX MINUTE WALK Routine 05/23/2025 10:00 AM CDT Chronic obstructive pulmonary disease, unspecified COPD type ([facility] HHS/HCC) PULMONARY FUNCTION TEST Routine 05/23/2025 10:00 AM CDT Chronic obstructive pulmonary disease, unspecified COPD type ([facility] HHS/HCC) PFT GENERIC (SCAN ORDER) [...] 11:57 AM Narrative 07/23/2025 1:13 PM CDT [facility] [address] [place], [place] [address] EXAMINATION: CTA CHEST WITH CONTRAST EXAM DATE/TIME: [...] Procedure Note Diallo Ahumada MD - 07/23/[address] [address] EXAMINATION: CTA CHEST WITH CONTRAST EXAM DATE/TIME: [...] 11:39 AM Narrative 06/25/2025 12:09 PM CDT [address] [address] EXAMINATION: HIGH-RESOLUTION CT CHEST WITHOUT CONTRAST EXAM [...] Procedure Note Srinath Wellington MD - 06/25/[address] [address] EXAMINATION: HIGH-RESOLUTION CT CHEST WITHOUT CONTRAST EXAM [...] CDT Echocardiography Report Pat.Name: LIDIA MONTES Pat.ID: [id number] St.Date: 05/26/2025 Exam Time: 12:36:00 PM Study Type:ECHO WITH CARDIAC DOPPLER COMP Height: 63 in Weight: 145 lb BSA: 1.69 m2 Age: 1 1945,79Y Sex: F BP: 140/50 Sonogrphr: Rosangela Grijalva Pat. Stat.:Outpatient CPT - 4: 43216 Reason for Study:Tricuspid regurgitation Procedures: 2D, M-mode, [...] cm Aortic Root Hi 2.73 cm LVOT/AoV (MIXER AND BLENDER) ( 0.44 Left atrial hi 4.66 cm [...] 05/28/2025 Echocardiography Report Pat.Name: LIDIA MONTES Pat.ID: [id number] St.Date: 05/26/2025 Exam Time: 12:36:00 PM Study Type:ECHO WITH CARDIAC DOPPLER COMP Height: 63 in Weight: 145 lb BSA: 1.69 m2 Age: 1 1945,79Y Sex: F BP: 140/50 Sonogrphr: Rosangela Grijalva Pat. Stat.:Outpatient CPT - 4: 52289 Reason for Study:Tricuspid regurgitation Procedures: 2D, M-mode, [...] cm Aortic Root Hi 2.73 cm LVOT/AoV (MIXER AND BLENDER) ( 0.44 Left atrial hi 4.66 cm [...] Final Res ult * Six Minute Walk (08818) (05/23/2025 10:00 AM CDT) Narrative [facility] - 05/23/2025 10:00 AM CDT Denzel Hanson MD 06/02/2025 12:09 PM [facility] PULMONARY FUNCTION TESTS Lidia Montes 79-year-old Height [...] Denzel Hanson MD PFT ORDERABLES Final Result [facility] [address] [place] [address], [place] [phone] * Complete PFT (pre/post Josue, Lung Vol, Diff Capacity) (76341, 99189, 32168, 22337) (05/23/2025 10:00 AM CDT) Narrative [facility] - 05/23/2025 10:00 AM CDT Denzel Hanson MD 06/02/2025 12:09 PM [facility] PULMONARY FUNCTION TESTS Lidia Montes 79-year-old Height [...] Denzel Hanson MD PFT ORDERABLES Final Result [facility] [address] [place] [address], [place] [phone] * PFT GENERIC (SCAN ORDER) (05/23/2025) 05/23/2025 [facility] Scanned SCANNING Final Resu lt * COLONOSCOPY GENERIC (SCAN ORDER) (08/07/2024) 08/07/2024 [facility] Scanned SCANNING Final Resu lt * BONE DENSITY GENERIC (05/17/2023) Anatomical Region Laterality Modality Other 05/17/2023 [facility] Scanned SCANNING Final Resu lt * HEPATITIS C ANTIBODY (09/06/2021 2:18 PM CDT) HEPATITIS C AB NON-REACTI VE NON-REACT TAMIKA 09/06/2021 9:55 PM CDT [facility] Comment: ANTIBODIES TO HCV NOT DETECTED. DOES NOT EXCLUDE THE POSSIBILITY OF EXPOSURE TO HCV. 09/06/2021 2:18 PM CDT Jose Zepeda MD LABORATORY Final Result [facility] [address] [place] [address], [id number] from Last 3 Months or Most Recently Relevant to Health Maintenance Insurance BLUE CROSS BLUE SHIELD MEDICARE JABARI VALENTINE [id number] Advance Directives Documents on File Type Date Recorded Patient Traffic Controller Cable Expl anation Legal Documents 10/14/2021 COVID 19 VAC CINATION RECORD CARD * Full Code (Latest Code Status on File) Date Activated Date Inactivated Comments 03/30/2023 11:45 AM 03/31/2023 4:23 PM Care Teams Interior Surface Insulation Worker Relationship Specialty Start Date End Date Denzel Harris DO [address] [place], [place] [id number] PCP - General FAMILY PRACTICE 09/04/24 Ovidio Valverde MD Three [facility] [address] [place] [address] [phone] Physician CARDIOVASCULAR DISEASE 09/30/21 Tadeo Frost MD Three [facility]. [address] [place] [address] [phone] Referring Physician VASCULAR SURGERY 09/30/21
--- OUTSIDE RECORDS SUMMARY | 2025-08-18 21:23 | XMS_ITS | Encounter Summary ---
Author Organization [facility] Address [address] [place] [address] Care Team Providers Care Production Or Plant Engineer Name Role Phone Jackson Morales MD Unavailable [phone] Ovdiio Valverde MD Unavailable [phone] Tadeo Frost MD Unavailable Jackson Morales MD Primary Care Provider [phone] Jose Zepeda MD Primary Care Provider [phone] Yves Harris DO Primary Care Provider + Encounter Details Date Type Department Care Team (Late st Contact Info) Description 06/10/2024 MyChart Message [facility] Multispecialty Care - [place] [address] [address] [place] [address] Jose Zepeda MD [address] [place] [address] 157 [place] [address] appointment Social History Tobacco Use Types Packs/Day Years Used Date Smoking Tobacco: Every Day Cigarettes 0.5 46 Smokeless Tobacco: Never Comments:08/04/23 between 1/2 to 1 ppd; counseled by Dr. Zepeda. Alcohol Use Standard Drinks/Week Comments Yes 0 [...] week 03/30/2023 How often do you attend [facility] or sabianist services? More than 4 times per year 03/30/2023 Do you belong to any clubs o r organizations such as yazdanism groups, unions, fraternal or athletic groups, or [...] Recorded Patient Health Questionnaire-2 Score 0 04/22/2024 [facility] of Occupat ional Health - Occupational [...] place to sleep or slept in a alf (including now)? No 03/30/2023 Comments No Sex and Gender Information Value Date Recorded Sex Assigned at Female 11/28/2024 2:57 PM BINDER LOCKSTITCH Legal Sex Female 2:49 PM CDT Gender [...] st Contact Info) Description 10/22/2025 1:00 PM BINDER LOCKSTITCH Office Visit [facility] Pulmonology Specialty Clinic - [address] [address] Yves Giles MD 3 [facility] [address] [place] [address] 10/27/2025 12:15 PM BINDER LOCKSTITCH Office Visit [facility] [address] [place] [address] Ovidio Valverde MD Three [facility] [address] [place] [address] 11/17/2025 1:40 PM BINDER LOCKSTITCH Office Visit [facility] Medical Group Family & Internal Medicine - [address] [address] Yves Harris DO [address] [place] [address] 11/24/2025 11:00 AM BINDER LOCKSTITCH Appointment [facility] [place] [address] Tadeo Frost MD Three [facility]. [address] [address] 01/13/2026 11:00 AM BINDER LOCKSTITCH Appointment [facility] [place] [address] Tadeo Frost MD Three [facility]. [facility] [address] [place] [address] 07/31/2026 1:30 PM CDT Appointment [place] [address] Roberto Mariscal MD 3 [facility] [address] [place] [address] 08/13/2026 11:45 AM CDT [facility] THREE [facility], [facility] [address] [place] [address] Roberto Mariscal MD [address] [address] documented as of this encounter Visit Diagnoses Not on filedocumented in this encounter Additional Health Concerns Infection Onset Date Last Indicated Resolved Time COVID-19 Rule Out 01/22/2025 01/22/2025 01/22/2025 5:18 AM CDT Assessment Noted Time PHQ-9 Depression Total Score: 0 09/29/20 21 1:51 PM BINDER LOCKSTITCH documented as of this encounter Care Teams Production Or Plant Engineer Relationship Specialty Start Date End Date [place] [address] PCP - General FAMILY MEDICINE SPORTS MEDICINE 06/13/24 07/21/24 Jose Zepeda MD [address] [address] PCP - General INTERNAL MEDICINE 07/22/24 09/03/24 Yves Harris DO [address] [place] [address] PCP - General FAMILY PRACTICE 09/04/24 Jackson Morales MD FAMILY MEDICINE SPORTS MEDICINE 09/30/21 07/07/24 Ovidio Valverde MD [facility], [address] [place] [address] [phone] Physician CARDIOVASCULAR DISEASE 09/30/21 Tadeo Frost MD [facility] [address] [place] [phone] Referring Physician VASCULAR SURGERY 09/30/21 documented as of this encounter
--- OUTSIDE RECORDS SUMMARY | 2025-08-18 21:23 | XMS_ITS | Encounter Summary ---
Author Organization [facility] Address [place] [address] Care Team Providers Care Patient Admitting Clerk Name Role Phone Jackson Morales MD Unavailable [phone] Ovidio Valverde MD Unavailable [phone] Tadeo Frost MD Unavailable Jackson Morales MD Primary Care Provider [phone] Jose Zepeda MD Primary Care Provider [phone] Yves Harris DO Primary Care Provider + Encounter Details Date Type Department Care Team (Late st Contact Info) Description 05/10/2023 MyChart Message [facility] Medical Group - [facility] [address] [place], [place] [address] [facility] Provider Air Quality Message Social History Tobacco [...] How often do you attend chur or pentecostalism services? More than 4 times per year 03/30/2023 Do you belong to any clubs o r organizations such as anabaptist groups, unions, fraternal or athletic groups, or [...] Recorded Patient Health Questionnaire-2 Score 0 12/23/2022 [facility] of Occupat ional Health - Occupational Stress [...] place to sleep or slept in a retirement (including now)? No 03/30/2023 Comments No Sex and Gender Information Value Date Recorded Sex Assigned at Female 11/28/2024 2:57 PM ENROUTE CONTROLLER Legal Sex Female 2:49 PM CDT Gender [...] st Contact Info) Description 10/22/2025 1:00 PM ENROUTE CONTROLLER Office Visit [facility] Pulmonology Specialty Clinic - [address] [facility] [address] [place] [address] Yves Giles MD 3 [facility] [address] [place] [address] 10/27/2025 12:15 PM ENROUTE CONTROLLER Office Visit [facility] [address] [facility] [address] [place] [address] Ovidio Valverde MD Three [facility] [address] [place] [address] 11/17/2025 1:40 PM ENROUTE CONTROLLER Office Visit [facility] Medical Group Family & Internal Medicine - [place] [address] [place] [address] Yves Harris DO [address] [place] [address] 11/24/2025 11:00 AM ENROUTE CONTROLLER Appointment [facility] [place] [address] Tadeo Frost MD Three [facility]. [facility] [address] [place] [address] 01/13/2026 11:00 AM ENROUTE CONTROLLER Appointment [facility] [place] [address] Tadeo Frost MD Three [facility]. [facility] [address] [place] [address] 07/31/2026 1:30 PM CDT [place] [address] Roberto Mariscal MD 3 [facility] [address] [place] [address] 08/13/2026 11:45 AM CDT Office Visit [facility] THREE [facility], [facility] [address] [place] [address] Roberto Mariscal MD 3 [facility] [address] [place] [address] documented as of this encounter Visit Diagnoses Not on filedocumented in this encounter Additional Health Concerns Infection Onset Date Last Indicated Resolved Time COVID-19 Rule Out 01/22/2025 01/22/2025 01/22/2025 5:18 AM CDT Assessment Noted Time PHQ-9 Depression Total Score: 0 09/29/20 21 1:51 PM ENROUTE CONTROLLER documented as of this encounter Care Teams Patient Admitting Clerk Relationship Specialty Start Date End Date Jackson Morales [place] [address] PCP - General FAMILY MEDICINE SPORTS MEDICINE 06/13/24 07/21/24 Jose Zepeda MD [address] [address] PCP - General INTERNAL MEDICINE 07/22/24 09/03/24 Yves Harris DO [address] [place] [address] PCP - General FAMILY PRACTICE 09/04/24 Jackson Morales MD FAMILY MEDICINE SPORTS MEDICINE 09/30/21 07/07/24 Ovidio Valverde MD Three [facility] [address] [place] [address] [phone] Physician CARDIOVASCULAR DISEASE 09/30/21 Tadeo Frost MD Three [facility]. [address] [place], [place] [phone] Referring Physician VASCULAR SURGERY 09/30/21 documented as of this encounter
--- OUTSIDE RECORDS SUMMARY | 2025-08-18 21:23 | XMS_ITS | Encounter Summary ---
Author Organization [facility] Address [address] [place] [address] Care Team Providers Care Client Technical Support Associate Name Role Phone Ovidio Valverde MD Unavailable [phone] Tadeo Frost MD Unavailable Yves Harris DO Primary Care Provider + Encounter Details Date Type Department Care Team (Latest Contact Info) Description 06/25/2025 Results Follow-Up [facility] Multispecialty Care - [facility] 3 [facility] [place] [address] Yves Giles MD 3 [facility] [address] [place] [address] CT CHEST HIGH RESOLUTION WO CON Social History Tobacco Use Types Packs/Day Years Used Date Smoking Tobacco: Some Days Cigarettes Last attempted to quit: 03/05/1968 Smokeless Tobacco: Never Comments:Provider to [place] Alcohol Use Standard Drinks/Week Comments Not Currently [...] How often do you attend chur or latter-day services? More than 4 times per year 03/30/2023 Do you belong to any clubs o r organizations such as denominational groups, unions, fraternal or athletic groups, or [...] Recorded Patient Health Questionnaire-2 Score 0 03/05/2025 [facility] of Occupat ional Health - [...] Sex Assigned at Female 11/28/2024 2:57 PM DIRECTOR SURFACE TRANSPORTATION Legal Sex Female 2:49 PM CDT Gender [...] st Contact Info) Description 10/22/2025 1:00 PM DIRECTOR SURFACE TRANSPORTATION Office Visit [facility] Pulmonology Specialty Clinic - [address] [address] Yves Giles MD 3 [facility] [address] [place] [address] 10/27/2025 12:15 PM DIRECTOR SURFACE TRANSPORTATION Office Visit [facility] [address] [facility] [address] [place] [address] Ovidio Valverde MD Three [facility] [address] [place] [address] 11/17/2025 1:40 PM DIRECTOR SURFACE TRANSPORTATION Office Visit [facility] Medical Group Family & Internal Medicine - [place] [address] [place] [address] Yves Harris DO [address] [place] [address] 11/24/2025 11:00 AM DIRECTOR SURFACE TRANSPORTATION Appointment [facility] [place] [address] Tadeo Frost MD Three [facility]. [address] [place] [address] 01/13/2026 11:00 AM DIRECTOR SURFACE TRANSPORTATION Appointment [facility] [place] [address] Tadeo Frost MD Three [facility]. [address] [place] [address] 07/31/2026 1:30 PM CDT App[place]ment [place] [address] Roberto Mariscal MD 3 [facility] [address] [place] [address] 08/13/2026 11:45 AM CDT Office Visit [facility] [address] [place] [address] Roberto Mariscal MD 3 [facility] [address] [place] [address] documented as of this encounter Visit Diagnoses Not on filedocumented in this encounter Additional Health Concerns Assessment Noted Time PHQ-9 Depression Total Score: 0 09/29/20 21 1:51 PM DIRECTOR SURFACE TRANSPORTATION documented as of this encounter Care Teams Client Technical Support Associate Relationship Specialty Start Date End Date Yves Harris DO [address] [place] [address] PCP - General FAMILY PRACTICE 09/04/24 Ovidio Valverde MD Three [facility] [address] [place] [address] Physician CARDIOVASCULAR DISEASE 09/30/21 Tadeo Frost MD [address] [address] Referring Physician VASCULAR SURGERY 09/30/21 documented as of this encounter
--- OUTSIDE RECORDS SUMMARY | 2025-08-18 21:23 | XMS_ITS | Encounter Summary ---
Author Organization [facility] Address [address] [place] [address] Care Team Providers Care Lcac Operator Name Role Phone Ovidio Valverde MD Unavailable [phone] Tadeo Frost MD Unavailable Yves Harris DO Primary Care Provider + Encounter Details Date Type Department Care Team (Late st Contact Info) Description 05/29/2025 Mob[facility] Message [facility] [address] Ara Dickerson, ANP-[facility] [address] [place] [address] Test Results Social History Tobacco Use Types Packs/Day Years Used Date Smoking Tobacco: Some Days Cigarettes Last attempted to quit: 03/05/1968 Smokeless Tobacco: Never Comments:Provider to [employer] Alcohol Use Standard Drinks/Week Comments Not Currently [...] How often do you attend chur or jewish services? More than 4 times per year 03/30/2023 Do you belong to any clubs o r organizations such as jewish groups, unions, fraternal or athletic groups, or [...] Recorded Patient Health Questionnaire-2 Score 0 03/05/2025 [facility] [place] of Occupat ional Health - Occupational Stress [...] place to sleep or slept in a residential (including now)? No 03/30/2023 Comments No Sex and Gender Information Value Date Recorded Sex Assigned at Female 11/28/2024 2:57 PM PLASTICS SHEET FINISHING PRESS OPERATOR Legal Sex Female 2:49 PM CDT [...] st Contact Info) Description 10/22/2025 1:00 PM PLASTICS SHEET FINISHING PRESS OPERATOR Office Visit [facility] - [address] [facility] [address] [place] [address] Yves Giles MD [address] [facility] [address] [place] [address] 10/27/2025 12:15 PM PLASTICS SHEET FINISHING PRESS OPERATOR Office Visit [facility] [address] [place] [address] Ovidio Valverde MD Three [facility] [address] [place] [address] 11/17/2025 1:40 PM PLASTICS SHEET FINISHING PRESS OPERATOR Office Visit [facility] Family & Internal Medicine - [place] [address] [place] [address] Yves Harris, [address] [place] [address] 11/24/2025 11:00 AM PLASTICS SHEET FINISHING PRESS OPERATOR Appointment [facility] [place] [address] Tadeo Frost MD Three [facility]. [address] [place] [address] 01/13/2026 11:00 AM PLASTICS SHEET FINISHING PRESS OPERATOR Appointment [facility] [place] [address] Tadeo Frost MD Three [facility]. [address] [place] [address] 07/31/2026 1:30 PM CDT Appointment [facility] [place] [address] Roberto Mariscal MD [address] [facility] [address] [place] [address] 08/13/2026 11:45 AM CDT Office Visit [facility] THREE [facility], [address] [place] [address] Roberto Mariscal MD [address] [facility] [address] [place] [address] documented as of this encounter Visit Diagnoses Not on filedocumented in this encounter Additional Health Concerns Assessment Noted Time PHQ-9 Depression Total Score: 0 09/29/20 1:51 PM PLASTICS SHEET FINISHING PRESS OPERATOR documented as of this encounter Care Teams Lcac Operator Relationship Specialty Start Date End Date Yves Harris DO [address] [place] [address] PCP - General FAMILY PRACTICE 09/04/24 Ovidio Valverde MD Three [facility] [address] [place] [address] Physician CARDIOVASCULAR DISEASE 09/30/21 Tadeo Frost MD [facility]. [address] [address] Referring Physician VASCULAR SURGERY 09/30/21 documented as of this encounter
--- OUTSIDE RECORDS SUMMARY | 2025-08-18 21:23 | XMS_ITS | Encounter Summary ---
Author Organization [facility] Address [address] [place] [address] Care Team Providers Care Software Test Manager Name Role Phone Jackson Morales MD Unavailable [phone] Ovidio Valverde MD Unavailable [phone] Tadeo Frost MD Unavailable Jackson Morales MD Primary Care Provider [phone] Jose Zepeda MD Primary Care Provider Yves Harris DO Primary Care Provider + Encounter Details Date Type Department Care Team (Late st Contact Info) Description 05/18/[address] [facility] Multispecialty Care - [address] [place], [place] [phone] [facility] Provider Results Social History Tobacco Use Types [...] often do you attend chur ch or baptist services? More than 4 times per year 03/30/2023 Do you belong to any clubs o r organizations such as methodist groups, unions, fraternal or athletic groups, or [...] Recorded Patient Health Questionnaire-2 Score 0 12/23/2022 [facility] [place] of Occupat ional Health - Occupational Stress [...] Sex Assigned at Female 11/28/2024 2:57 PM CLOTH SECONDS SORTER Legal Sex Female 2:49 PM CDT Gender [...] st Contact Info) Description 10/22/2025 1:00 PM CLOTH SECONDS SORTER Office Visit [facility] Specialty [facility] - [address] [address] Yves Giles MD 3 [facility] [address] [place] [address] 10/27/2025 12:15 PM CLOTH SECONDS SORTER Office Visit [facility] [address] [address] Ovidio Valverde MD Three [facility] [address] [place] [address] 11/17/2025 1:40 PM CLOTH SECONDS SORTER Office Visit [facility] - [place] [address] [place] [address] Yves Harris DO [address] [place] [address] 11/24/2025 11:00 AM CLOTH SECONDS SORTER Appointment [facility] [place] [address] Tadeo Frost MD Three [facility]. [address] [address] 01/13/2026 11:00 AM CLOTH SECONDS SORTER Appointment [facility] [place] [address] Tadeo Frost MD Three [facility] [address] [place] [address] 07/31/2026 1:[address] [place] [address] Roberto Mariscal MD 3 [facility] [address] [place] [address] 08/13/2026 11:45 AM CDT Office Visit [facility] THREE [facility] [address] [place] [address] Roberto Mariscal MD [address] [address] documented as of this encounter Visit Diagnoses Not on filedocumented in this encounter Additional Health Concerns Infection Onset Date Last Indicated Resolved Time COVID-19 Rule Out 01/22/2025 01/22/2025 01/22/2025 5:18 AM CDT Assessment Noted Time PHQ-9 Depression Total Score: 0 09/29/20 21 1:51 PM CLOTH SECONDS SORTER documented as of this encounter Care Teams Software Test Manager Relationship Specialty Start Date End Date [place] [address] PCP - General FAMILY MEDICINE SPORTS MEDICINE 06/13/24 07/21/24 Jose Zepeda MD [address] [address] PCP - General INTERNAL MEDICINE 07/22/24 09/03/24 Yves Harris DO [address] [place] [address] PCP - General FAMILY PRACTICE 09/04/24 Jackson Morales MD FAMILY MEDICINE SPORTS MEDICINE 09/30/21 07/07/24 Ovidio Valverde MD Three [facility], [address] [place] [phone] Physician CARDIOVASCULAR DISEASE 09/30/21 Tadeo Frost MD Three [facility] [address] [place] [id number] Referring Physician VASCULAR SURGERY 09/30/21 documented as of this encounter
--- OUTSIDE RECORDS SUMMARY | 2025-08-18 21:23 | XMS_ITS | Encounter Summary ---
Author Organization [facility] Address [address] [place] [address] Care Team Providers Care Pediatric Immunologist Name Role Phone Ovidio Valverde MD Unavailable [phone] Tadeo Frost MD Unavailable Yves Harris DO Primary Care Provider + Encounter Details Date Type Department Care Team (Late st Contact Info) Description 09/20/2024 MyChart Message Enc [facility] Pulmonology Specialty Clinic - [address] [place] [address] Yves Giles MD 3 [facility] [address] [place], [place] [phone] Jerel Escalante Social History Tobacco Use Types [...] How often do you attend chur or bahai services? More than 4 times per year 03/30/2023 Do you belong to any clubs o r organizations such as mormonism groups, unions, fraternal or athletic groups, or [...] Recorded Patient Health Questionnaire-2 Score 0 04/22/2024 [facility] [place] of Occupat ional Health - Occupational Stress [...] Sex Assigned at Female 11/28/2024 2:57 PM INTERVENTIONAL RADIOLOGIST Legal Sex Female 2:49 PM CDT Gender [...] st Contact Info) Description 10/22/2025 1:00 PM INTERVENTIONAL RADIOLOGIST Office Visit [facility]ty [facility] - [address] [address] Yves Giles MD 3 [facility] [address] [place] [address] 10/27/2025 12:15 PM INTERVENTIONAL RADIOLOGIST Office Visit [facility] [address] Ovidio Valverde MD Three [facility] [address] [place] [address] 11/17/2025 1:40 PM INTERVENTIONAL RADIOLOGIST Office Visit [facility] Group Family & Internal Medicine - [place] [id number] [place] [address] Yves Harris, [facility] [place] [address] 11/24/2025 11:00 AM INTERVENTIONAL RADIOLOGIST Appointment [facility] [place] [address] Tadeo Frost MD Three [facility]. [facility] [address] [place] [address] 01/13/2026 11:00 AM INTERVENTIONAL RADIOLOGIST Appointment [facility] [place] [address] Tadeo Frost MD Three [facility]. [facility] [address] [place] [address] 07/31/2026 1:30 PM CDT [place] [address] Roberto Mariscal MD 3 [facility] [address] [place] [address] 08/13/2026 11:45 AM CDT Office Visit [facility] THREE [facility], [facility] [address] [place] [address] Roberto Mariscal MD 3 [facility] [address] [place] [address] documented as of this encounter Visit Diagnoses Not on filedocumented in this encounter Additional Health Concerns Infection Onset Date Last Indicated Resolved Time COVID-19 Rule Out 01/22/2025 01/22/2025 01/22/2025 5:18 AM CDT Assessment Noted Time PHQ-9 Depression Total Score: 0 09/29/20 21 1:51 PM INTERVENTIONAL RADIOLOGIST documented as of this encounter Care Teams Pediatric Immunologist Relationship Specialty Start Date End Date Yves Harris DO [address] [place] [address] PCP - General FAMILY PRACTICE 09/04/24 Ovidio Valverde MD [facility] [address] [place] [address] Physician CARDIOVASCULAR DISEASE 09/30/21 Tadeo Frost MD Three [facility]. [address] [place] [address] Referring Physician VASCULAR SURGERY 09/30/21 documented as of this encounter
== END 2025-08-18 22:52 | disposition home or self-care (01) ==
PROVIDERS: Emergency Provider Emergency Medicine; PCP Student in an Organized Health Care Education/Training Program
DX: M54.2 Cervicalgia (principal); I70.8 Atherosclerosis of other arteries; I51.7 Cardiomegaly; K86.9 Disease of pancreas, unspecified; I71.23 Aneurysm of the descending thoracic aorta, without rupture; I67.1 Cerebral aneurysm, nonruptured; I65.23 Occlusion and stenosis of bilateral carotid arteries
CPT/HCPCS: 36415; 70498; 71275; 72125; 80053; 83605; 85025; 85610; 85730; 96374; 99284; A9270; J3360; Q9967